=== PATIENT | male | born 1950 | race African-American/Black ===

== ENCOUNTER 2017-08-31 13:44 | Inpatient (IN) | payer OTHER ==
[2017-08-31] MEDS: SOD CHLORIDE 0.9% 500 ML IV (15:05)
[2017-08-31 15:08] LABS: ADD MAN DIFF? NO
[2017-08-31 15:09] LABS: WHITE BLOOD COUNT 4.2 10^3/ul (4.8-10.8)
[2017-08-31 15:09] LABS: BASOPHILS % 0.2 % (0.0-2.0); HEMATOCRIT 37.1 % (42.0-52.0); HEMOGLOBIN 12.1 g/dl (14.0-18.0); LYMPHOCYTES # 1.1 10^3/ul (0.8-2.9); LYMPHOCYTES % 26.6 % (15.0-51.0); MEAN CORPUSCULAR HEMOGLOBIN 36.3 pg (29.0-33.0); MEAN CORPUSCULAR HGB CONC 32.6 g/dl (32.0-37.0); MEAN CORPUSCULAR VOLUME 111.4 fl (82.0-101.0); MEAN PLATELET VOLUME 10.5 fl (7.4-10.4); MONOCYTE # 0.5 10^3/ul (0.3-0.9); MONOCYTES % 12.9 % (0.0-11.0); NEUTROPHIL # 2.5 10^3/ul (1.6-7.5); NEUTROPHILS % 59.1 % (39.0-77.0); PLATELET COUNT 146 10^3/UL (140-415); RED BLOOD COUNT 3.33 10^6/ul (4.70-6.10); RED CELL DISTRIBUTION WIDTH 11.4 % (11.5-14.5)
[2017-08-31 15:26] LABS: ALANINE AMINOTRANSFERASE 27 IU/L (13-69); ALBUMIN 3.5 g/dl (3.3-4.9); ALBUMIN/GLOBULIN RATIO 1.29; ALKALINE PHOSPHATASE 49 IU/L (42-121); ANION GAP 9 (8-16); ASPARTATE AMINO TRANSFERASE 38 IU/L (15-46); BILIRUBIN,INDIRECT 0.2 mg/dl (0-1.1); BILIRUBIN,TOTAL 0.2 mg/dl (0.2-1.3); BLOOD UREA NITROGEN 10 mg/dl (7-20); CALCIUM 8.8 mg/dl (8.4-10.2); CARBON DIOXIDE 32 mmol/L (21-31); CHLORIDE 98 mmol/L (97-110); CREATININE 0.97 mg/dl (0.61-1.24); GLUCOSE 99 mg/dl (70-220); POTASSIUM 4.9 mmol/L (3.5-5.1); SODIUM 134 mmol/L (135-144); TOTAL PROTEIN 6.2 g/dl (6.1-8.1)
[2017-08-31 15:28] LABS: PARTIAL THROMBOPLASTIN TIME 28.7 Sec (25.0-35.0); PROTIME 12.2 Sec (11.9-14.9)
[2017-08-31 15:38] LABS: B-TYPE NATRIURETIC PEPTIDE 1810 PG/ML (0-125); TROPONIN-I 0.011 ng/ml (0.000-0.120)
[2017-08-31] MEDS: IPRATROPIUM (NEB) 0.5 MG/2.5 ML AMP NEB (16:05)
[2017-08-31] MEDS: ALBUTEROL 0.083% (NEB) 2.5 MG/3 ML AMP NEB (16:05)
[2017-08-31] MEDS: FUROSEMIDE 20 MG INJ IV (17:19)
[2017-08-31] MEDS ORDERED: ONDANSETRON 4 MG INJ IV ×2 (17:30→20:00)
[2017-08-31] MEDS ORDERED: ACETAMINOPHEN 325 MG TAB PO ×2 (17:30→20:00)
[2017-08-31] MEDS ORDERED: NITROGLYCERIN (SL) 0.4 MG TAB SL (20:00)
[2017-08-31] MEDS ORDERED: DOCUSATE SODIUM 100 MG CAP PO (20:00)
[2017-08-31] MEDS: ALBUMIN HUMAN 25% 100 ML IV ×2 (20:00→21:00)
[2017-08-31] MEDS ORDERED: NACL 0.9% 3 ML SYG IV (20:00)
[2017-08-31] MEDS: HYDROCODONE/APAP (10/325) TAB PO (20:26)
[2017-09-01] MEDS: predniSONE 20 MG TAB PO ×2 (00:03→08:12)
[2017-09-01] MEDS: ALBUTEROL/IPRATROPIUM (NEB) 3 ML AMP HHN (00:25)
[2017-09-01] MEDS: ALBUTEROL HFA 8 GM INHALER INH ×3 (00:47→18:36)
[2017-09-01 01:33] LABS: ADD UMIC NO; UR ASCORBIC ACID NEGATIVE (NEGATIVE); UR BILIRUBIN (Dip) NEGATIVE (NEGATIVE); UR BLOOD (Dip) NEGATIVE (NEGATIVE); UR CLARITY CLEAR (CLEAR); UR COLOR STRAW (YELLOW); UR GLUCOSE (Dip) NEGATIVE (NEGATIVE); UR KETONES (Dip) NEGATIVE (NEGATIVE); UR LEUKOCYTE ESTERASE (Dip) NEGATIVE Leu/ul (NEGATIVE); UR NITRITE (Dip) NEGATIVE (NEGATIVE); UR SPECIFIC GRAVITY (Dip) 1.004 (1.003-1.030); UR TOTAL PROTEIN (Dip) NEGATIVE (NEGATIVE); UR UROBILINOGEN (Dip) NEGATIVE (NEGATIVE)
[2017-09-01] MEDS: IPRATROPIUM (NEB) 0.5 MG/2.5 ML AMP HHN ×3 (01:59→13:45)
[2017-09-01 02:15] LABS: SODIUM,URINE RANDOM 60 mmol/L (30-90)
[2017-09-01] MEDS: HYDROCODONE/APAP (10/325) TAB PO ×4 (02:19→18:36)
[2017-09-01] MEDS: ZOLPIDEM 5 MG TAB PO (02:46)
[2017-09-01 03:08] LABS: OSMOLALITY,URINE 211 mOsm/kg (250-1200)
[2017-09-01 08:04] LABS: ADD MAN DIFF? NO
[2017-09-01 08:05] LABS: WHITE BLOOD COUNT 4.8 10^3/ul (4.8-10.8)
[2017-09-01 08:05] LABS: ABNORMAL IP MESSAGE 1; HEMATOCRIT 34.7 % (42.0-52.0); HEMOGLOBIN 11.4 g/dl (14.0-18.0); LYMPHOCYTES # 0.4 10^3/ul (0.8-2.9); LYMPHOCYTES % 7.3 % (15.0-51.0); MEAN CORPUSCULAR HEMOGLOBIN 36.7 pg (29.0-33.0); MEAN CORPUSCULAR HGB CONC 32.9 g/dl (32.0-37.0); MEAN CORPUSCULAR VOLUME 111.6 fl (82.0-101.0); MEAN PLATELET VOLUME 10.7 fl (7.4-10.4); MONOCYTE # 0.1 10^3/ul (0.3-0.9); MONOCYTES % 1.5 % (0.0-11.0); NEUTROPHIL # 4.4 10^3/ul (1.6-7.5); PLATELET COUNT 160 10^3/UL (140-415); POSITIVE DIFF @See below; RED BLOOD COUNT 3.11 10^6/ul (4.70-6.10); RED CELL DISTRIBUTION WIDTH 11.2 % (11.5-14.5)
[2017-09-01] MEDS: FLUTICASONE/VILANTEROL 100-25 INH (08:11)
[2017-09-01] MEDS: LISINOPRIL 10 MG TAB PO (08:13)
[2017-09-01 08:21] LABS: HEMOGLOBIN A1C 5.7 % (0-5.9)
[2017-09-01 08:24] LABS: CREATINE KINASE 73 IU/L (23-200)
[2017-09-01 08:26] LABS: ALANINE AMINOTRANSFERASE 26 IU/L (13-69); ALBUMIN 3.3 g/dl (3.3-4.9); ALBUMIN/GLOBULIN RATIO 1.26; ALKALINE PHOSPHATASE 44 IU/L (42-121); ANION GAP 11 (8-16); ASPARTATE AMINO TRANSFERASE 35 IU/L (15-46); BILIRUBIN,INDIRECT 0.2 mg/dl (0-1.1); BILIRUBIN,TOTAL 0.2 mg/dl (0.2-1.3); BLOOD UREA NITROGEN 14 mg/dl (7-20); CALCIUM 8.6 mg/dl (8.4-10.2); CARBON DIOXIDE 27 mmol/L (21-31); CHLORIDE 100 mmol/L (97-110); CREATININE 1.02 mg/dl (0.61-1.24); GLUCOSE 199 mg/dl (70-220); MAGNESIUM 1.7 mg/dl (1.7-2.5); POTASSIUM 4.6 mmol/L (3.5-5.1); SODIUM 133 mmol/L (135-144); TOTAL PROTEIN 5.9 g/dl (6.1-8.1)
[2017-09-01 08:37] LABS: CK INDEX 8.7; CK-MB 6.32 ng/ml (0.0-2.4)
[2017-09-01 08:41] LABS: OSMOLALITY 289 mOsm/kg (280-295)
[2017-09-01 08:56] LABS: THYROID STIMULATING HORMONE 0.498 MIU/L (0.465-4.680)
[2017-09-01] MEDS: ABACAVIR/LAMIVUDINE TAB PO (09:00)
[2017-09-01 09:32] LABS: FOLATE 16.8 ng/ml (2.8-20.0)
[2017-09-01] MEDS: ENOXAPARIN 60 MG/0.6 ML SYG SC ×2 (14:39→22:04)
[2017-09-01] MEDS ORDERED: PHENOL 1.4% SOLN 180 ML BTL MT (17:30)
[2017-09-01] MEDS: CEPASTAT LOZENGE MT (18:28)
[2017-09-01] MEDS: morphine 2 MG INJ IV (22:07)
[2017-09-02] MEDS: HYDROCODONE/APAP (10/325) TAB PO ×4 (02:00→16:12)
[2017-09-02] MEDS: morphine 2 MG INJ IV ×2 (02:02→02:04)
[2017-09-02 07:22] LABS: ADD MAN DIFF? NO; HAAIG REFLEX REFLEX FILED
[2017-09-02 07:23] LABS: BASOPHILS % 0.2 % (0.0-2.0); EOSINOPHILS % 0.2 % (0.0-7.0); HEMATOCRIT 35.1 % (42.0-52.0); HEMOGLOBIN 11.5 g/dl (14.0-18.0); LYMPHOCYTES # 1.1 10^3/ul (0.8-2.9); LYMPHOCYTES % 21.7 % (15.0-51.0); MEAN CORPUSCULAR HEMOGLOBIN 36.7 pg (29.0-33.0); MEAN CORPUSCULAR HGB CONC 32.8 g/dl (32.0-37.0); MEAN CORPUSCULAR VOLUME 112.1 fl (82.0-101.0); MEAN PLATELET VOLUME 10.2 fl (7.4-10.4); MONOCYTE # 0.7 10^3/ul (0.3-0.9); MONOCYTES % 13.4 % (0.0-11.0); NEUTROPHIL # 3.1 10^3/ul (1.6-7.5); NEUTROPHILS % 64.3 % (39.0-77.0); PLATELET COUNT 155 10^3/UL (140-415); RED BLOOD COUNT 3.13 10^6/ul (4.70-6.10); RED CELL DISTRIBUTION WIDTH 11.3 % (11.5-14.5)
[2017-09-02 07:23] LABS: WHITE BLOOD COUNT 4.8 10^3/ul (4.8-10.8)
[2017-09-02 07:42] LABS: INR 0.91; PROTIME 12.3 Sec (11.9-14.9)
[2017-09-02 07:47] LABS: IRON 41 ug/dl (35-150)
[2017-09-02 07:50] LABS: ALANINE AMINOTRANSFERASE 19 IU/L (13-69); ALBUMIN 3.3 g/dl (3.3-4.9); ALBUMIN/GLOBULIN RATIO 1.17; ALKALINE PHOSPHATASE 42 IU/L (42-121); ANION GAP 8 (8-16); ASPARTATE AMINO TRANSFERASE 31 IU/L (15-46); BILIRUBIN,INDIRECT 0.1 mg/dl (0-1.1); BILIRUBIN,TOTAL 0.1 mg/dl (0.2-1.3); BLOOD UREA NITROGEN 15 mg/dl (7-20); CALCIUM 9.1 mg/dl (8.4-10.2); CARBON DIOXIDE 36 mmol/L (21-31); CHLORIDE 100 mmol/L (97-110); GLUCOSE 77 mg/dl (70-220); MAGNESIUM 1.7 mg/dl (1.7-2.5); PHOSPHORUS 3.4 mg/dl (2.5-4.9); POTASSIUM 4.9 mmol/L (3.5-5.1); SODIUM 139 mmol/L (135-144); TOTAL PROTEIN 6.1 g/dl (6.1-8.1)
[2017-09-02 07:57] LABS: % IRON SATURATION 19 % SAT (22-52); TOTAL IRON BINDING CAPACITY 219 ug/dl (241-421)
[2017-09-02] MEDS: FLUTICASONE/VILANTEROL 100-25 INH (08:01)
[2017-09-02] MEDS: DOLUTEGRAVIR SODIUM 50 MG TABLET PO ×2 (08:10→08:20)
[2017-09-02] MEDS: LISINOPRIL 5 MG TAB PO (08:12)
[2017-09-02] MEDS: THIAMINE 100 MG TAB PO (08:12)
[2017-09-02] MEDS: ENOXAPARIN 60 MG/0.6 ML SYG SC (08:13)
[2017-09-02 08:20] LABS: HEPATITIS B SURFACE ANTIGEN NEGATIVE (NEGATIVE)
[2017-09-02] MEDS: ABACAVIR/LAMIVUDINE TAB PO (08:20)
[2017-09-02 08:38] LABS: HEPATITIS B CORE ANTIBODY REACTIVE (NEGATIVE); HEPATITIS C VIRAL ANTIBODY REACTIVE (NEGATIVE)
[2017-09-02 08:54] LABS: FOLATE 13.2 ng/ml (2.8-20.0)
[2017-09-02] MEDS: BISACODYL (EC) 5 MG TAB PO (09:08)
[2017-09-19 14:04] LABS: LYMPHOCYTE - % CD4 (HELPER) 20 % (30-61); LYMPHOCYTE - %CD8 (SUPPRESSOR) 39 % (12-42); LYMPHOCYTE - ABSOLUTE 345 cells/uL (850-3900); LYMPHOCYTE - ABSOLUTE CD4 70 cells/uL (490-1740); LYMPHOCYTE - ABSOLUTE CD8 133 cells/uL (180-1170); LYMPHOCYTE - CD4/CD8 RATIO 0.52 (0.86-5.00)
== END 2017-09-02 16:57 | disposition home or self-care (01) | DRG 896 ==
LOC: E/R 13:44 → MS4 17:13
DX: F10.20 Alcohol dependence, uncomplicated (principal); B20 Human immunodeficiency virus [HIV] disease; I82.531 Chronic embolism and thrombosis of right popliteal vein; I10 Essential (primary) hypertension; Z90.5 Acquired absence of kidney; D64.9 Anemia, unspecified; J44.9 Chronic obstructive pulmonary disease, unspecified; I95.9 Hypotension, unspecified; K75.9 Inflammatory liver disease, unspecified
CPT/HCPCS: 36415; 71045; 80053; 80076; 81003; 82550; 82553; 82607; 82728; 82746; 83036; 83540; 83735; 83880; 83930; 83935; 84100; 84300; 84443; 84484; 85025; 85610; 85730; 86360; 86704; 86709; 86803; 87040; 87340; 87536; 93005; 93306; 93970; 94640; 94664; 99285-25; G0378

== ENCOUNTER 2017-12-12 02:20 | Inpatient (IN) | payer OTHER ==
[2017-12-12] MEDS ORDERED: DEXAMETHASONE 10 MG/ML 1 ML INJ IV (02:24)
[2017-12-12] MEDS: LORAZEPAM 2 MG INJ IV (02:33)
[2017-12-12 02:36] LABS: ADD MAN DIFF? NO
[2017-12-12 02:37] LABS: MODE ROOM AIR; MetHgb Venous 0.8 %; Sample Type Blood venous; Site VENOUS LINE; Venous COHb 2.3 %; Venous Oxygen Sat 24.8 mmHG (55.0-75.0); Venous Total Hemglobin 13.8 g/dl
[2017-12-12] MEDS: DEXAMETHASONE 10 MG/ML 1 ML INJ IV (02:40)
[2017-12-12] MEDS: ALBUTEROL 0.5% (NEB) 2.5 MG/0.5 ML AMP INH (02:46)
[2017-12-12] MEDS: IPRATROPIUM (NEB) 0.5 MG/2.5 ML AMP INH (02:46)
[2017-12-12 02:58] LABS: ANION GAP 10 (5-13); BLOOD UREA NITROGEN 20 mg/dl (7-20); CALCIUM 8.9 mg/dl (8.4-10.2); CARBON DIOXIDE 30 mmol/L (21-31); CHLORIDE 95 mmol/L (97-110); CREATININE 1.54 mg/dl (0.61-1.24); Estimated GFR 55 mL/min (>60); GLUCOSE 105 mg/dl (70-220); POTASSIUM 5.6 mmol/L (3.5-5.1); SODIUM 135 mmol/L (135-144)
[2017-12-12 03:08] LABS: BASOPHILS % 0.5 % (0.0-2.0); EOSINOPHILS # 0.4 10^3/ul (0.0-0.5); EOSINOPHILS % 7.3 % (0.0-7.0); HEMATOCRIT 40.7 % (42.0-52.0); HEMOGLOBIN 13.7 g/dl (14.0-18.0); LYMPHOCYTES # 1.5 10^3/ul (0.8-2.9); LYMPHOCYTES % 24.4 % (15.0-51.0); MEAN CORPUSCULAR HEMOGLOBIN 37.1 pg (29.0-33.0); MEAN CORPUSCULAR HGB CONC 33.7 g/dl (32.0-37.0); MEAN CORPUSCULAR VOLUME 110.3 fl (82.0-101.0); MEAN PLATELET VOLUME 10.8 fl (7.4-10.4); MONOCYTE # 0.9 10^3/ul (0.3-0.9); MONOCYTES % 14.2 % (0.0-11.0); NEUTROPHIL # 3.2 10^3/ul (1.6-7.5); NEUTROPHILS % 53.4 % (39.0-77.0); PLATELET COUNT 126 10^3/UL (140-415); RED BLOOD COUNT 3.69 10^6/ul (4.70-6.10); RED CELL DISTRIBUTION WIDTH 12.2 % (11.5-14.5)
[2017-12-12 03:10] LABS: TROPONIN-I < 0.012 ng/ml (0.000-0.120)
[2017-12-12] MEDS: CEFTRIAXONE 1 GM/50 ML (PMX) 50 ML IVPB (03:20)
[2017-12-12] MEDS: SODIUM CHLORIDE 0.9% 1L BAG IV* (03:22)
[2017-12-12] MEDS: AZITHROMYCIN 500MG/NS (PMX) 250 ML IV (03:22)
[2017-12-12 03:35] LABS: POTASSIUM 5.1 mmol/L (3.5-5.1)
[2017-12-12 03:39] LABS: LACTIC ACID 1.2 mmol/L (0.5-2.0)
[2017-12-12] MEDS ORDERED: ACETAMINOPHEN 325 MG TAB PO ×2 (04:30)
[2017-12-12] MEDS ORDERED: BISACODYL (EC) 5 MG TAB PO (04:30)
[2017-12-12] MEDS ORDERED: ONDANSETRON 4 MG INJ IV ×2 (04:30)
[2017-12-12] MEDS ORDERED: DOCUSATE SODIUM 100 MG CAP PO (04:30)
[2017-12-12] MEDS ORDERED: NACL 0.9% 3 ML SYG IV (04:30)
[2017-12-12] MEDS: ALBUTEROL 0.083% (NEB) 2.5 MG/3 ML AMP INH (04:51)
[2017-12-12] MEDS: ALBUTEROL/IPRATROPIUM (NEB) 3 ML AMP HHN ×3 (04:54→12:37)
[2017-12-12] MEDS ORDERED: HEPARIN 5,000 UNIT/1 ML VIAL SC ×2 (06:00→22:09)
[2017-12-12] MEDS: HEPARIN 5,000 UNIT/0.5 ML VIAL SC ×2 (06:53→14:00)
[2017-12-12] MEDS: SENNA TAB PO (06:55)
[2017-12-12] MEDS: PANTOPRAZOLE (EC) 40 MG TAB PO (06:56)
[2017-12-12] MEDS: TRIMETHOPRIM/SULFAMETHOX (DS) TAB PO ×2 (07:00→11:16)
[2017-12-12] MEDS ORDERED: AZITHROMYCIN 500MG/NS (PMX) 250 ML IVPB (07:00)
[2017-12-12] MEDS ORDERED: CEFTRIAXONE 1 GM/50 ML (PMX) 50 ML IVPB (07:00)
[2017-12-12] MEDS ORDERED: CEPASTAT LOZENGE MT (07:30)
[2017-12-12 07:47] LABS: AMPHETAMINE/METHAMPHETAMINE Negative (NEGATIVE); BARBITURATES Negative (NEGATIVE); BENZODIAZEPINES Negative (NEGATIVE); CANNABINOIDS Negative (NEGATIVE)
[2017-12-12 07:53] LABS: COCAINE Positive (NEGATIVE); OPIATES Positive (NEGATIVE)
[2017-12-12] MEDS ORDERED: FLUTICASONE/VILANTEROL 100-25 INH (09:00)
[2017-12-12] MEDS: ABACAVIR/LAMIVUDINE TAB PO ×2 (09:00→11:19)
[2017-12-12] MEDS ORDERED: AMLODIPINE 5 MG TAB GTB (09:00)
[2017-12-12] MEDS ORDERED: NON-FORMULARY/PATIENT OWN MED (Abacavir/Dolutegravir/Lamivudi (Triumeq Tablet) 1 EACH) PO (09:00)
[2017-12-12] MEDS: DOLUTEGRAVIR SODIUM 50 MG TABLET PO ×2 (09:00→11:19)
[2017-12-12] MEDS: FLUTICASONE/VILANTEROL 100-25 INH (09:00)
[2017-12-12 09:33] LABS: LACTIC ACID 2.9 mmol/L (0.5-2.0)
[2017-12-12 10:00] LABS: ALANINE AMINOTRANSFERASE 45 IU/L (13-69); ALBUMIN 5.2 g/dl (3.3-4.9); ALKALINE PHOSPHATASE 128 IU/L (42-121); ANION GAP 17 (5-13); ASPARTATE AMINO TRANSFERASE 68 IU/L (15-46); BILIRUBIN,INDIRECT 0.3 mg/dl (0-1.1); BILIRUBIN,TOTAL 0.3 mg/dl (0.2-1.3); BLOOD UREA NITROGEN 19 mg/dl (7-20); CALCIUM 9.9 mg/dl (8.4-10.2); CARBON DIOXIDE 25 mmol/L (21-31); CHLORIDE 96 mmol/L (97-110); CREATININE 1.39 mg/dl (0.61-1.24); Estimated GFR > 60 mL/min (>60); GLUCOSE 182 mg/dl (70-220); POTASSIUM 5.6 mmol/L (3.5-5.1); SODIUM 138 mmol/L (135-144); TOTAL PROTEIN 9.2 g/dl (6.1-8.1)
[2017-12-12] MEDS: HYDROCODONE/APAP (10/325) TAB PO ×2 (10:04→16:17)
[2017-12-12 10:26] LABS: THYROID STIMULATING HORMONE 0.851 MIU/L (0.465-4.680)
[2017-12-12] MEDS: MAGNESIUM CITRATE 300 ML BTL PO ×3 (10:31→17:30)
[2017-12-12] MEDS: predniSONE 20 MG TAB PO (11:19)
[2017-12-12] MEDS: HARD FAT/PHENYLEPHRINE SUPP PR ×2 (12:00→21:24)
[2017-12-12] MEDS: BISACODYL (EC) 5 MG TAB PO (12:03)
[2017-12-12] MEDS: ALBUTEROL 0.083% (NEB) 2.5 MG/3 ML AMP HHN ×2 (13:50→20:22)
[2017-12-12] MEDS: METHYLNALTREXONE 12 MG/0.6 ML VIAL SC (15:13)
[2017-12-12] MEDS: MINERAL OIL 133 ML ENEMA PR ×2 (17:30→17:59)
[2017-12-12] MEDS: POLYETHYLENE GLYCOL 3350 119 GM POWDER PO (17:54)
[2017-12-12] MEDS: LORAZEPAM 1 MG TAB PO (18:59)
[2017-12-12] MEDS ORDERED: DIPHENHYDRAMINE 50 MG CAP (21:09)
[2017-12-12] MEDS: DIPHENHYDRAMINE 50 MG CAP PO (21:24)
[2017-12-12] MEDS ORDERED: HEPARIN 5,000 UNIT/0.5 ML VIAL (22:10)
[2017-12-12 22:12] LABS: SITE Right Upper Forearm
[2017-12-12] MEDS: HEPARIN 5,000 UNIT/1 ML VIAL SC (22:25)
[2017-12-12] MEDS ORDERED: PE/SHARK OIL/MO/PETROL 30 GM OINT PR (23:00)
[2017-12-12 23:22] LABS: ADD MAN DIFF? NO
[2017-12-12 23:23] LABS: ABNORMAL IP MESSAGE 1; HEMOGLOBIN 13.2 g/dl (14.0-18.0); LYMPHOCYTES # 0.5 10^3/ul (0.8-2.9); LYMPHOCYTES % 10.3 % (15.0-51.0); MEAN CORPUSCULAR HEMOGLOBIN 36.8 pg (29.0-33.0); MEAN CORPUSCULAR VOLUME 111.4 fl (82.0-101.0); MEAN PLATELET VOLUME 10.6 fl (7.4-10.4); MONOCYTE # 0.4 10^3/ul (0.3-0.9); MONOCYTES % 8.4 % (0.0-11.0); NEUTROPHIL # 3.8 10^3/ul (1.6-7.5); NEUTROPHILS % 80.9 % (39.0-77.0); PLATELET COUNT 138 10^3/UL (140-415); POSITIVE DIFF @See below; RED BLOOD COUNT 3.59 10^6/ul (4.70-6.10); RED CELL DISTRIBUTION WIDTH 12.2 % (11.5-14.5)
[2017-12-12 23:23] LABS: WHITE BLOOD COUNT 4.7 10^3/ul (4.8-10.8)
[2017-12-12 23:42] LABS: ALANINE AMINOTRANSFERASE 36 IU/L (13-69); ALBUMIN 4.2 g/dl (3.3-4.9); ALKALINE PHOSPHATASE 86 IU/L (42-121); ANION GAP 9 (5-13); ASPARTATE AMINO TRANSFERASE 49 IU/L (15-46); BILIRUBIN,INDIRECT 0.1 mg/dl (0-1.1); BILIRUBIN,TOTAL 0.1 mg/dl (0.2-1.3); BLOOD UREA NITROGEN 19 mg/dl (7-20); CALCIUM 8.9 mg/dl (8.4-10.2); CARBON DIOXIDE 31 mmol/L (21-31); CHLORIDE 97 mmol/L (97-110); CREATININE 1.27 mg/dl (0.61-1.24); Estimated GFR > 60 mL/min (>60); GLUCOSE 176 mg/dl (70-220); POTASSIUM 5.9 mmol/L (3.5-5.1); SODIUM 137 mmol/L (135-144)
[2017-12-12 23:46] LABS: LACTIC ACID 2.9 mmol/L (0.5-2.0)
[2017-12-13] MEDS: HYDROCODONE/APAP (10/325) TAB PO ×3 (00:35→12:35)
[2017-12-13] MEDS: MINERAL OIL 133 ML ENEMA PR (00:35)
[2017-12-13] MEDS: ALBUTEROL 0.083% (NEB) 2.5 MG/3 ML AMP HHN ×4 (01:11→11:28)
[2017-12-13] MEDS: AZITHROMYCIN 500MG/NS (PMX) 250 ML IVPB (05:24)
[2017-12-13] MEDS ORDERED: LEVOFLOXACIN 750 MG TABLET PO (06:00)
[2017-12-13] MEDS ORDERED: HEPARIN 5,000 UNIT/0.5 ML VIAL (06:14)
[2017-12-13] MEDS: POLYETHYLENE GLYCOL 3350 119 GM POWDER PO (06:20)
[2017-12-13] MEDS: CEFTRIAXONE 1 GM/50 ML (PMX) 50 ML IVPB (06:20)
[2017-12-13] MEDS: PANTOPRAZOLE (EC) 40 MG TAB PO (06:21)
[2017-12-13] MEDS: HEPARIN 5,000 UNIT/1 ML VIAL SC (06:24)
[2017-12-13] MEDS ORDERED: LORAZEPAM 2 MG INJ (06:49)
[2017-12-13] MEDS ORDERED: LORAZEPAM 0.5 MG TAB PO (07:00)
[2017-12-13] MEDS ORDERED: LORAZEPAM 2 MG INJ IV (07:30)
[2017-12-13 07:53] LABS: ADD MAN DIFF? NO
[2017-12-13 08:00] LABS: BASOPHILS % 0.2 % (0.0-2.0); EOSINOPHILS % 0.2 % (0.0-7.0); HEMATOCRIT 42.1 % (42.0-52.0); HEMOGLOBIN 13.8 g/dl (14.0-18.0); LYMPHOCYTES # 0.8 10^3/ul (0.8-2.9); LYMPHOCYTES % 13.9 % (15.0-51.0); MEAN CORPUSCULAR HEMOGLOBIN 36.7 pg (29.0-33.0); MEAN CORPUSCULAR HGB CONC 32.8 g/dl (32.0-37.0); MEAN PLATELET VOLUME 10.1 fl (7.4-10.4); MONOCYTE # 0.6 10^3/ul (0.3-0.9); NEUTROPHIL # 4.3 10^3/ul (1.6-7.5); NEUTROPHILS % 74.2 % (39.0-77.0); PLATELET COUNT 127 10^3/UL (140-415); POSITIVE DIFF @See below; RED BLOOD COUNT 3.76 10^6/ul (4.70-6.10); RED CELL DISTRIBUTION WIDTH 12.1 % (11.5-14.5)
[2017-12-13 08:00] LABS: WHITE BLOOD COUNT 5.8 10^3/ul (4.8-10.8)
[2017-12-13 08:17] LABS: LACTIC ACID 1.8 mmol/L (0.5-2.0)
[2017-12-13 08:20] LABS: LACTATE DEHYDROGENASE 688 IU/L (313-618)
[2017-12-13 08:20] LABS: ALANINE AMINOTRANSFERASE 36 IU/L (13-69); ALBUMIN 4.2 g/dl (3.3-4.9); ALBUMIN/GLOBULIN RATIO 1.16; ALKALINE PHOSPHATASE 97 IU/L (42-121); ANION GAP 7 (5-13); ASPARTATE AMINO TRANSFERASE 51 IU/L (15-46); BILIRUBIN,INDIRECT 0.2 mg/dl (0-1.1); BILIRUBIN,TOTAL 0.2 mg/dl (0.2-1.3); BLOOD UREA NITROGEN 19 mg/dl (7-20); CARBON DIOXIDE 32 mmol/L (21-31); CHLORIDE 98 mmol/L (97-110); CREATININE 1.15 mg/dl (0.61-1.24); Estimated GFR > 60 mL/min (>60); GLUCOSE 122 mg/dl (70-220); SODIUM 137 mmol/L (135-144); TOTAL PROTEIN 7.8 g/dl (6.1-8.1)
[2017-12-13 08:41] LABS: POTASSIUM 5.7 mmol/L (3.5-5.1)
[2017-12-13 08:49] LABS: HEPATITIS B SURFACE ANTIGEN NEGATIVE (NEGATIVE)
[2017-12-13] MEDS: ABACAVIR/LAMIVUDINE TAB PO (09:00)
[2017-12-13] MEDS: DOLUTEGRAVIR SODIUM 50 MG TABLET PO (09:00)
[2017-12-13 09:06] LABS: HEPATITIS C VIRAL ANTIBODY REACTIVE (NEGATIVE)
[2017-12-13] MEDS: predniSONE 20 MG TAB PO (09:07)
[2017-12-13] MEDS: TRIMETHOPRIM/SULFAMETHOX (DS) TAB GTB (09:07)
[2017-12-13] MEDS: BISACODYL (EC) 5 MG TAB PO (09:07)
[2017-12-13 09:08] LABS: ANISOCYTOSIS 1+ (0-0); BAND NEUTROPHILS % (M) 1 % (0-4); EOSINOPHILS % (M) 1 % (0-7); LYMPHOCYTES #M 0.6 10^3/ul (0.8-2.9); LYMPHOCYTES % (M) 12 % (15-51); MONOCYTE #M 0.8 10^3/ul (0.3-0.9); MONOCYTES % (M) 14 % (0-11); PLATELET ESTIMATE DECREASED; REACTIVE LYMPHOCYTES% (M) 1 % (0-0); SEG NEUT #M 4.1 10^3/ul (1.6-7.5); SEGMENTED NEUTROPHILS (M) % 71 % (39-77); SMUDGE%M 13 % (0-0)
[2017-12-13] MEDS: HARD FAT/PHENYLEPHRINE SUPP PR (09:08)
[2017-12-13] MEDS: FLUTICASONE/VILANTEROL 100-25 INH (09:10)
[2017-12-13] MEDS: LACTULOSE 30ML CUP PO (09:11)
[2017-12-13 09:17] LABS: ERYTHROCYTE SEDIMENTATION RATE 12 mm/Hr (0-20)
[2017-12-13 13:51] LABS: LYMPHOCYTE - % CD4 (HELPER) 28 % (30-61); LYMPHOCYTE - %CD8 (SUPPRESSOR) 30 % (12-42); LYMPHOCYTE - ABSOLUTE 188 cells/uL (850-3900); LYMPHOCYTE - ABSOLUTE CD4 52 cells/uL (490-1740); LYMPHOCYTE - ABSOLUTE CD8 57 cells/uL (180-1170); LYMPHOCYTE - CD4/CD8 RATIO 0.92 (0.86-5.00)
[2017-12-14 12:28] LABS: NIL 0.03 IU/mL; QUANTIFERON(R)-TB GOLD INDETERMINATE (NEGATIVE)
[2017-12-14 22:03] LABS: FORTY EIGHT HOUR READING 0 mm (0-9)
== END 2017-12-13 14:30 | disposition left against medical advice (07) | DRG 190 ==
LOC: E/R 02:20 → TEL 04:02
PROC: 3E0F7GC Introduction of Other Therapeutic Substance into Respiratory Tract, Via Natural or Artificial Opening (ICD-10-PCS; principal; 2017-12-12)
DX: J44.1 Chronic obstructive pulmonary disease with (acute) exacerbation (principal); J18.9 Pneumonia, unspecified organism; N17.9 Acute kidney failure, unspecified; K92.1 Melena; I10 Essential (primary) hypertension; E87.5 Hyperkalemia; F14.90 Cocaine use, unspecified, uncomplicated; B19.20 Unspecified viral hepatitis C without hepatic coma; K64.9 Unspecified hemorrhoids; K59.00 Constipation, unspecified; K62.89 Other specified diseases of anus and rectum; G89.29 Other chronic pain
CPT/HCPCS: 36415; 71045; 74018; 80048; 80053; 80307; 82803; 83036; 83605; 83615; 84132; 84443; 84484; 85025; 85651; 86360; 86480; 86580; 86606; 86635; 86709; 86803; 87040; 87340; 87522; 87536; 90686; 93005; 93970; 94640; 94644; 94664; 96365; 96366; 96375; 99291-25

== ENCOUNTER 2017-12-27 13:12 | Inpatient (IN) | payer OTHER ==
[2017-12-27 13:53] LABS: ADD MAN DIFF? NO
[2017-12-27 13:54] LABS: BASOPHILS % 0.3 % (0.0-2.0); HEMATOCRIT 42.2 % (42.0-52.0); HEMOGLOBIN 14.2 g/dl (14.0-18.0); LYMPHOCYTES # 1.2 10^3/ul (0.8-2.9); LYMPHOCYTES % 10.5 % (15.0-51.0); MEAN CORPUSCULAR HEMOGLOBIN 36.2 pg (29.0-33.0); MEAN CORPUSCULAR HGB CONC 33.6 g/dl (32.0-37.0); MEAN CORPUSCULAR VOLUME 107.7 fl (82.0-101.0); MEAN PLATELET VOLUME 10.6 fl (7.4-10.4); MONOCYTE # 0.8 10^3/ul (0.3-0.9); MONOCYTES % 7.6 % (0.0-11.0); NEUTROPHILS % 81.2 % (39.0-77.0); PLATELET COUNT 150 10^3/UL (140-415); RED BLOOD COUNT 3.92 10^6/ul (4.70-6.10); RED CELL DISTRIBUTION WIDTH 11.9 % (11.5-14.5)
[2017-12-27 14:13] LABS: INR 0.96; PROTIME 12.9 Sec (11.9-14.9)
[2017-12-27 14:14] LABS: PARTIAL THROMBOPLASTIN TIME 29.3 Sec (23.0-35.0)
[2017-12-27] MEDS: SODIUM CHLORIDE 0.9% 1L BAG IV* (14:20)
[2017-12-27 14:21] LABS: ANION GAP 13 (5-13); BLOOD UREA NITROGEN 21 mg/dl (7-20); CALCIUM 9.2 mg/dl (8.4-10.2); CARBON DIOXIDE 28 mmol/L (21-31); CHLORIDE 87 mmol/L (97-110); CREATININE 1.19 mg/dl (0.61-1.24); Estimated GFR > 60 mL/min (>60); GLUCOSE 94 mg/dl (70-220); SODIUM 128 mmol/L (135-144)
[2017-12-27 14:32] LABS: POTASSIUM 6.1 mmol/L (3.5-5.1); TROPONIN-I < 0.012 ng/ml (0.000-0.120)
[2017-12-27] MEDS: NA POLYST SULFON 15 GM/60 ML BTL PO (14:35)
[2017-12-27] MEDS ORDERED: ONDANSETRON 4 MG INJ IV (15:00)
[2017-12-27] MEDS ORDERED: ACETAMINOPHEN 325 MG TAB PO ×2 (15:00→16:00)
[2017-12-27] MEDS: METHYLPREDNISOLONE 125 MG INJ IV ×2 (15:09→20:48)
[2017-12-27] MEDS: FUROSEMIDE 40 MG INJ IV (15:09)
[2017-12-27] MEDS: NA BICARBONATE 8.4% 50 ML SYG IV (15:10)
[2017-12-27] MEDS: DEXTROSE 50% 50 ML SYRINGE IV (15:10)
[2017-12-27] MEDS: INSULIN REGULAR, HUMAN 100 UNIT/1 ML 3ML VIAL IVP (15:11)
[2017-12-27] MEDS: CA CHLORIDE 10% 10 ML SYRINGE IV (15:15)
[2017-12-27] MEDS: LEVOFLOXACIN 750MG/D5W (PMX) 150 ML IVPB (15:42)
[2017-12-27] MEDS: IPRATROPIUM (NEB) 0.5 MG/2.5 ML AMP INH (15:43)
[2017-12-27] MEDS: ALBUTEROL 0.5% (NEB) 2.5 MG/0.5 ML AMP INH (15:44)
[2017-12-27] MEDS ORDERED: NITROGLYCERIN (SL) 0.4 MG TAB SL (16:00)
[2017-12-27] MEDS ORDERED: NA PHOSPHATE/BIPHOS 133 ML ENEMA PR (16:00)
[2017-12-27] MEDS ORDERED: NACL 0.9% 3 ML SYG IV (16:00)
[2017-12-27] MEDS ORDERED: DOCUSATE SODIUM 100 MG CAP PO (16:00)
[2017-12-27] MEDS ORDERED: hydrALAzine 20 MG INJ IV (16:00)
[2017-12-27 16:41] LABS: FREE T4 (FREE THYROXINE) 1.44 ng/dl (0.78-2.44)
[2017-12-27] MEDS: ALBUTEROL/IPRATROPIUM (NEB) 3 ML AMP HHN ×2 (17:00→20:29)
[2017-12-27] MEDS: SOD CHLORIDE 0.9% 1,000 ML IV (17:13)
[2017-12-27] MEDS ORDERED: PIPER-TAZO 3.375 GM IV (PMX) 100 ML IVPB (18:00)
[2017-12-27] MEDS: morphine 2 MG INJ IV (18:48)
[2017-12-27] MEDS: ERTAPENEM SODIUM 1 GM in SOD CHLORIDE 0.9% 100 ML IVPB (18:48)
[2017-12-27] MEDS: TRIMETHOPRIM/SULFAMETHOXAZOLE 15 ML in DEXTROSE 5% 500 ML IVPB (20:47)
[2017-12-27] MEDS: [UNRECOGNIZED DRUG - REMARK] XX (21:00)
[2017-12-27] MEDS ORDERED: TRIMETHOPRIM/SULFAMETHOX (DS) TAB PO (21:00)
[2017-12-28] MEDS: morphine 2 MG INJ IV ×7 (00:02→23:57)
[2017-12-28] MEDS: TRIMETHOPRIM/SULFAMETHOXAZOLE 15 ML in DEXTROSE 5% 500 ML IVPB ×4 (00:02→21:30)
[2017-12-28] MEDS: ALBUTEROL/IPRATROPIUM (NEB) 3 ML AMP HHN ×6 (00:20→20:39)
[2017-12-28] MEDS: [UNRECOGNIZED DRUG - REMARK] XX (01:00)
[2017-12-28 05:37] LABS: ADD MAN DIFF? NO
[2017-12-28 05:46] LABS: ABNORMAL IP MESSAGE 1; BASOPHILS % 0.2 % (0.0-2.0); HEMATOCRIT 33.7 % (42.0-52.0); HEMOGLOBIN 11.5 g/dl (14.0-18.0); LYMPHOCYTES # 0.1 10^3/ul (0.8-2.9); LYMPHOCYTES % 2.5 % (15.0-51.0); MEAN CORPUSCULAR HEMOGLOBIN 36.6 pg (29.0-33.0); MEAN CORPUSCULAR HGB CONC 34.1 g/dl (32.0-37.0); MEAN CORPUSCULAR VOLUME 107.3 fl (82.0-101.0); MEAN PLATELET VOLUME 10.9 fl (7.4-10.4); MONOCYTE # 0.1 10^3/ul (0.3-0.9); MONOCYTES % 1.4 % (0.0-11.0); NEUTROPHIL # 5.4 10^3/ul (1.6-7.5); NEUTROPHILS % 95.5 % (39.0-77.0); PLATELET COUNT 127 10^3/UL (140-415); POSITIVE DIFF @See below; RED BLOOD COUNT 3.14 10^6/ul (4.70-6.10); RED CELL DISTRIBUTION WIDTH 11.9 % (11.5-14.5)
[2017-12-28 05:46] LABS: WHITE BLOOD COUNT 5.7 10^3/ul (4.8-10.8)
[2017-12-28] MEDS: METHYLPREDNISOLONE 125 MG INJ IV ×3 (05:46→22:39)
[2017-12-28 06:01] LABS: INR 1.06; PROTIME 13.9 Sec (11.9-14.9); PT RATIO 1.1
[2017-12-28 06:01] LABS: HEMOGLOBIN A1C 5.3 % (0-5.9)
[2017-12-28 06:05] LABS: ANION GAP 9 (5-13); BLOOD UREA NITROGEN 22 mg/dl (7-20); CALCIUM 8.5 mg/dl (8.4-10.2); CARBON DIOXIDE 31 mmol/L (21-31); CHLORIDE 87 mmol/L (97-110); CREATININE 1.11 mg/dl (0.61-1.24); Estimated GFR > 60 mL/min (>60); GLUCOSE 221 mg/dl (70-220); SODIUM 127 mmol/L (135-144)
[2017-12-28 06:10] LABS: ETHANOL < 10.0 mg/dl; LACTIC ACID 2.6 mmol/L (0.5-2.0)
[2017-12-28 06:11] LABS: PHOSPHORUS 3.6 mg/dl (2.5-4.9)
[2017-12-28 06:11] LABS: MAGNESIUM 1.5 mg/dl (1.7-2.5)
[2017-12-28 06:13] LABS: CHOLESTEROL 149 mg/dl (100-200)
[2017-12-28 06:13] LABS: CHOL/HDL RATIO 1.5 RATIO; HDL CHOLESTEROL 99 mg/dl (30-78); LDL CHOLESTEROL,CALCULATED 44 mg/dl; TRIGLYCERIDES 30 mg/dl (0-149)
[2017-12-28] MEDS: SOD CHLORIDE 0.9% 1,000 ML IV ×3 (07:00→13:33)
[2017-12-28] MEDS: LISINOPRIL 10 MG TAB PO (08:20)
[2017-12-28] MEDS ORDERED: NON-FORMULARY/PATIENT OWN MED (Abacavir/Dolutegravir/Lamivudi (Triumeq Tablet) 1 EACH) PO (09:00)
[2017-12-28 09:12] LABS: THYROID STIMULATING HORMONE 0.363 MIU/L (0.465-4.680)
[2017-12-28] MEDS ORDERED: MAGNESIUM HYDROXIDE 30ML CUP PO (09:30)
[2017-12-28] MEDS ORDERED: FAMOTIDINE 20 MG TAB (10:01)
[2017-12-28] MEDS: CEPASTAT LOZENGE MT (10:58)
[2017-12-28] MEDS: FAMOTIDINE 20 MG INJ IV (11:09)
[2017-12-28] MEDS: INFLUENZA VIRUS VACCINE 0.5 ML (DISPENSING) IM* (11:11)
[2017-12-28 11:21] LABS: AADO2 Arterial 361.8 mmHg (7.0-24.0); Allen Test ACCEPTAB; Arterial Base Excess 0.4 mmol/L (-3.0-3); Arterial Blood Gas Oxygen Sat 98.6 mmHG (95.0-98.0); Arterial COHb 0 % (0.0-3.0); Arterial Fraction of Oxyhgb 98.2 % (93.0-99.0); Arterial HCO3 27.4 mmol/L (22.0-26.0); Arterial MetHb 0.4 % (0.0-1.5); Arterial Total Hemglobin 11.9 g/dl (12.0-18.0); MODE MASK - NRB; Site Right Brachial
[2017-12-28] MEDS: MAGNESIUM SULFATE 2 GM/50 ML 50 ML IVPB (13:32)
[2017-12-28] MEDS: NYSTATIN SUSP 5 ML CUP PO ×3 (13:33→21:45)
[2017-12-28 15:43] LABS: LACTATE DEHYDROGENASE 577 IU/L (313-618)
[2017-12-28] MEDS: FLUCONAZOLE 100 MG TAB PO (16:11)
[2017-12-28] MEDS: LEVOFLOXACIN 500MG/D5W (PMX) 100 ML IVPB (16:11)
[2017-12-28] MEDS: ZOLPIDEM 5 MG TAB PO (21:45)
[2017-12-29] MEDS: ALBUTEROL/IPRATROPIUM (NEB) 3 ML AMP HHN ×6 (00:54→21:00)
[2017-12-29 01:42] LABS: LACTIC ACID 4.3 mmol/L (0.5-2.0)
[2017-12-29] MEDS: TRIMETHOPRIM/SULFAMETHOXAZOLE 15 ML in DEXTROSE 5% 500 ML IVPB ×4 (02:42→18:15)
[2017-12-29] MEDS: SOD CHLORIDE 0.9% 1,000 ML IV ×3 (02:43→18:15)
[2017-12-29] MEDS: morphine 2 MG INJ IV ×4 (04:25→17:32)
[2017-12-29] MEDS: METHYLPREDNISOLONE 125 MG INJ IV (06:08)
[2017-12-29 08:24] LABS: ADD MAN DIFF? NO
[2017-12-29 08:28] LABS: ABNORMAL IP MESSAGE 1; HEMATOCRIT 37.5 % (42.0-52.0); HEMOGLOBIN 12.9 g/dl (14.0-18.0); LYMPHOCYTES # 0.2 10^3/ul (0.8-2.9); LYMPHOCYTES % 2.7 % (15.0-51.0); MEAN CORPUSCULAR HGB CONC 34.4 g/dl (32.0-37.0); MEAN CORPUSCULAR VOLUME 107.4 fl (82.0-101.0); MEAN PLATELET VOLUME 10.7 fl (7.4-10.4); MONOCYTE # 0.2 10^3/ul (0.3-0.9); NEUTROPHILS % 93.8 % (39.0-77.0); PLATELET COUNT 142 10^3/UL (140-415); POSITIVE DIFF @See below; RED BLOOD COUNT 3.49 10^6/ul (4.70-6.10); RED CELL DISTRIBUTION WIDTH 11.9 % (11.5-14.5)
[2017-12-29 08:28] LABS: WHITE BLOOD COUNT 6.3 10^3/ul (4.8-10.8)
[2017-12-29 08:49] LABS: MAGNESIUM 1.9 mg/dl (1.7-2.5)
[2017-12-29 08:51] LABS: LACTIC ACID 3.9 mmol/L (0.5-2.0)
[2017-12-29 08:51] LABS: ANION GAP 11 (5-13); BLOOD UREA NITROGEN 15 mg/dl (7-20); CALCIUM 8.9 mg/dl (8.4-10.2); CARBON DIOXIDE 29 mmol/L (21-31); CHLORIDE 86 mmol/L (97-110); CREATININE 0.77 mg/dl (0.61-1.24); Estimated GFR > 60 mL/min (>60); GLUCOSE 178 mg/dl (70-220); POTASSIUM 5.4 mmol/L (3.5-5.1); SODIUM 126 mmol/L (135-144)
[2017-12-29] MEDS: DOLUTEGRAVIR SODIUM 50 MG TABLET PO (09:00)
[2017-12-29] MEDS: NYSTATIN SUSP 5 ML CUP PO ×4 (09:00→21:00)
[2017-12-29] MEDS: ABACAVIR/LAMIVUDINE TAB PO (09:00)
[2017-12-29] MEDS: FLUCONAZOLE 100 MG TAB PO (09:09)
[2017-12-29] MEDS: FAMOTIDINE 20 MG INJ IV (09:10)
[2017-12-29] MEDS: LISINOPRIL 10 MG TAB PO (09:10)
[2017-12-29] MEDS: NA POLYST SULFON 15 GM/60 ML BTL PO (11:11)
[2017-12-29 13:46] LABS: LACTIC ACID 4.3 mmol/L (0.5-2.0)
[2017-12-29] MEDS: METHYLPREDNISOLONE 40 MG INJ IV ×2 (13:50→21:00)
[2017-12-29] MEDS: LEVOFLOXACIN 500MG/D5W (PMX) 100 ML IVPB (14:22)
[2017-12-30] MEDS: morphine 2 MG INJ IV ×3 (00:18→23:20)
[2017-12-30] MEDS: TRIMETHOPRIM/SULFAMETHOXAZOLE 15 ML in DEXTROSE 5% 500 ML IVPB ×4 (00:21→16:21)
[2017-12-30] MEDS: ALBUTEROL/IPRATROPIUM (NEB) 3 ML AMP HHN ×6 (01:00→21:00)
[2017-12-30] MEDS: SOD CHLORIDE 0.9% 1,000 ML IV (03:53)
[2017-12-30] MEDS: METHYLPREDNISOLONE 40 MG INJ IV ×3 (06:55→21:49)
[2017-12-30 06:59] LABS: ADD MAN DIFF? NO
[2017-12-30 07:04] LABS: WHITE BLOOD COUNT 5.7 10^3/ul (4.8-10.8)
[2017-12-30 07:04] LABS: ABNORMAL IP MESSAGE 1; BASOPHILS % 0.2 % (0.0-2.0); HEMATOCRIT 37.2 % (42.0-52.0); HEMOGLOBIN 12.7 g/dl (14.0-18.0); LYMPHOCYTES # 0.2 10^3/ul (0.8-2.9); MEAN CORPUSCULAR HEMOGLOBIN 36.6 pg (29.0-33.0); MEAN CORPUSCULAR HGB CONC 34.1 g/dl (32.0-37.0); MEAN CORPUSCULAR VOLUME 107.2 fl (82.0-101.0); MEAN PLATELET VOLUME 10.5 fl (7.4-10.4); MONOCYTE # 0.3 10^3/ul (0.3-0.9); MONOCYTES % 4.4 % (0.0-11.0); NEUTROPHIL # 5.2 10^3/ul (1.6-7.5); NEUTROPHILS % 91.3 % (39.0-77.0); NUCLEATED RED BLOOD CELLS% 0.4 /100WBC (0.0-0.0); PLATELET COUNT 107 10^3/UL (140-415); POSITIVE DIFF @See below; RED BLOOD COUNT 3.47 10^6/ul (4.70-6.10); RED CELL DISTRIBUTION WIDTH 11.6 % (11.5-14.5)
[2017-12-30 07:24] LABS: ANION GAP 11 (5-13); BLOOD UREA NITROGEN 24 mg/dl (7-20); CALCIUM 8.7 mg/dl (8.4-10.2); CARBON DIOXIDE 25 mmol/L (21-31); CHLORIDE 86 mmol/L (97-110); CREATININE 1.12 mg/dl (0.61-1.24); Estimated GFR > 60 mL/min (>60); GLUCOSE 86 mg/dl (70-220); POTASSIUM 5.7 mmol/L (3.5-5.1); SODIUM 122 mmol/L (135-144)
[2017-12-30] MEDS: NYSTATIN SUSP 5 ML CUP PO ×5 (09:00→22:07)
[2017-12-30] MEDS: ABACAVIR/LAMIVUDINE TAB PO (09:00)
[2017-12-30] MEDS: FLUCONAZOLE 100 MG TAB PO (09:53)
[2017-12-30] MEDS: FAMOTIDINE 20 MG INJ IV (09:54)
[2017-12-30] MEDS: DOLUTEGRAVIR SODIUM 50 MG TABLET PO (09:54)
[2017-12-30] MEDS: LISINOPRIL 10 MG TAB PO (09:54)
[2017-12-30] MEDS ORDERED: NA BICARBONATE 4.2% INFANT SYG IV* (10:30)
[2017-12-30] MEDS: NA POLYST SULFON 15 GM/60 ML BTL PO (10:30)
[2017-12-30 11:56] LABS: LACTIC ACID 2.9 mmol/L (0.5-2.0)
[2017-12-30] MEDS: CALCIUM GLUCONATE 10% 1 GM in DEXTROSE 5% 100 ML IVPB (13:56)
[2017-12-30] MEDS: MEGESTROL (40 MG/ML) 10ML CUP PO (14:00)
[2017-12-30] MEDS: FUROSEMIDE 20 MG INJ IV (14:01)
[2017-12-30 14:47] LABS: ANION GAP 12 (5-13); BLOOD UREA NITROGEN 25 mg/dl (7-20); CALCIUM 8.7 mg/dl (8.4-10.2); CARBON DIOXIDE 27 mmol/L (21-31); CHLORIDE 83 mmol/L (97-110); Estimated GFR > 60 mL/min (>60); GLUCOSE 84 mg/dl (70-220); POTASSIUM 5.9 mmol/L (3.5-5.1); SODIUM 122 mmol/L (135-144)
[2017-12-30 14:55] LABS: LACTIC ACID 3.6 mmol/L (0.5-2.0)
[2017-12-30 14:58] LABS: URIC ACID 4.1 mg/dl (3.1-7.9)
[2017-12-30] MEDS: NA BICARBONATE 8.4% 50 ML SYG IV (14:59)
[2017-12-30 15:07] LABS: B-TYPE NATRIURETIC PEPTIDE 3440 PG/ML (0-125)
[2017-12-30] MEDS: LEVOFLOXACIN 500MG/D5W (PMX) 100 ML IVPB (15:13)
[2017-12-30] MEDS: CLINDAMYCIN 300 MG CAP PO (18:00)
[2017-12-30 19:07] LABS: LACTIC ACID 5.6 mmol/L (0.5-2.0)
[2017-12-30 19:20] LABS: OSMOLALITY 264 mOsm/kg (280-295)
[2017-12-30 23:23] LABS: ADD UMIC YES; UR ASCORBIC ACID NEGATIVE (NEGATIVE); UR BILIRUBIN (Dip) NEGATIVE (NEGATIVE); UR BLOOD (Dip) NEGATIVE (NEGATIVE); UR CLARITY TURBID (CLEAR); UR COLOR YELLOW (YELLOW); UR GLUCOSE (Dip) NEGATIVE (NEGATIVE); UR KETONES (Dip) NEGATIVE (NEGATIVE); UR LEUKOCYTE ESTERASE (Dip) 1+ Leu/ul (NEGATIVE); UR MUCUS FEW /HPF (NONE SEEN); UR NITRITE (Dip) NEGATIVE (NEGATIVE); UR RBC 2 /HPF (0-5); UR SPECIFIC GRAVITY (Dip) 1.018 (1.003-1.030); UR TOTAL PROTEIN (Dip) NEGATIVE (NEGATIVE); UR URIC ACID CRYSTAL MANY /HPF (NONE SEEN); UR UROBILINOGEN (Dip) NEGATIVE (NEGATIVE); UR WBC 0 /HPF (0-5)
[2017-12-30 23:32] LABS: CREATININE,URINE RANDOM 75.81 mg/dl (20-370)
[2017-12-30 23:32] LABS: OSMOLALITY,URINE 449 mOsm/kg (250-1200); SODIUM,URINE RANDOM 36 mmol/L (30-90)
[2017-12-31] MEDS: ALBUTEROL/IPRATROPIUM (NEB) 3 ML AMP HHN ×6 (01:00→21:40)
[2017-12-31] MEDS: CLINDAMYCIN 300 MG CAP PO ×4 (01:30→17:27)
[2017-12-31 03:24] LABS: LACTIC ACID 3.4 mmol/L (0.5-2.0)
[2017-12-31 05:25] LABS: ADD MAN DIFF? NO
[2017-12-31] MEDS: METHYLPREDNISOLONE 40 MG INJ IV ×3 (05:31→21:57)
[2017-12-31 05:41] LABS: ABNORMAL IP MESSAGE 1; BASOPHILS % 0.2 % (0.0-2.0); HEMATOCRIT 37.2 % (42.0-52.0); HEMOGLOBIN 12.7 g/dl (14.0-18.0); LYMPHOCYTES # 0.2 10^3/ul (0.8-2.9); MEAN CORPUSCULAR HEMOGLOBIN 35.7 pg (29.0-33.0); MEAN CORPUSCULAR HGB CONC 34.1 g/dl (32.0-37.0); MEAN CORPUSCULAR VOLUME 104.5 fl (82.0-101.0); MEAN PLATELET VOLUME 11.4 fl (7.4-10.4); MONOCYTE # 0.3 10^3/ul (0.3-0.9); MONOCYTES % 4.7 % (0.0-11.0); NUCLEATED RED BLOOD CELLS% 0.3 /100WBC (0.0-0.0); PLATELET COUNT 78 10^3/UL (140-415); POSITIVE DIFF @See below; RED BLOOD COUNT 3.56 10^6/ul (4.70-6.10); RED CELL DISTRIBUTION WIDTH 11.3 % (11.5-14.5)
[2017-12-31 05:41] LABS: WHITE BLOOD COUNT 5.7 10^3/ul (4.8-10.8)
[2017-12-31 06:07] LABS: ANION GAP 12 (5-13); BLOOD UREA NITROGEN 32 mg/dl (7-20); CALCIUM 8.8 mg/dl (8.4-10.2); CARBON DIOXIDE 31 mmol/L (21-31); CHLORIDE 83 mmol/L (97-110); CREATININE 1.37 mg/dl (0.61-1.24); Estimated GFR > 60 mL/min (>60); GLUCOSE 99 mg/dl (70-220); POTASSIUM 5.7 mmol/L (3.5-5.1); SODIUM 126 mmol/L (135-144)
[2017-12-31] MEDS: morphine 2 MG INJ IV ×2 (07:39→15:56)
[2017-12-31] MEDS: FAMOTIDINE 20 MG INJ IV (08:49)
[2017-12-31] MEDS: ONDANSETRON 4 MG INJ IV (08:49)
[2017-12-31] MEDS: FLUCONAZOLE 100 MG TAB PO (08:53)
[2017-12-31] MEDS: ABACAVIR/LAMIVUDINE TAB PO ×2 (08:53→09:00)
[2017-12-31] MEDS: PRIMAQUINE 15 MG TAB PO ×2 (08:53→09:00)
[2017-12-31] MEDS: DOLUTEGRAVIR SODIUM 50 MG TABLET PO ×2 (08:53→09:00)
[2017-12-31] MEDS: NYSTATIN SUSP 5 ML CUP PO ×4 (08:53→21:00)
[2017-12-31] MEDS: MAGNESIUM HYDROXIDE 30ML CUP PO (08:53)
[2017-12-31] MEDS: CEPASTAT LOZENGE MT (08:53)
[2017-12-31 09:10] LABS: AADO2 Arterial 161.2 mmHg (7.0-24.0); Arterial Base Excess 1.4 mmol/L (-3.0-3); Arterial Blood Gas Oxygen Sat 81.3 mmHG (95.0-98.0); Arterial COHb 0.6 % (0.0-3.0); Arterial Fraction of Oxyhgb 80.8 % (93.0-99.0); Arterial HCO3 28.7 mmol/L (22.0-26.0); Arterial MetHb 0 % (0.0-1.5); Arterial Total Hemglobin 9.9 g/dl (12.0-18.0); Arterial pCO2 60.1 mmhg (35-45); MODE NASAL CANNULA; Site Right Brachial
[2017-12-31] MEDS: NA POLYST SULFON 15 GM/60 ML BTL PO (09:51)
[2017-12-31] MEDS: ALBUMIN HUMAN 25% 100 ML IV ×2 (10:06→17:34)
[2017-12-31] MEDS: INSULIN REGULAR, HUMAN 100 UNIT/1 ML 3ML VIAL IVP (11:13)
[2017-12-31] MEDS ORDERED: DEXTROSE 50% 50 ML SYRINGE IV (11:30)
[2017-12-31] MEDS: NA BICARBONATE 8.4% 50 ML SYG IV (15:58)
[2017-12-31] MEDS: CALCIUM GLUCONATE 10% 1 GM in DEXTROSE 5% 100 ML IVPB (15:58)
[2017-12-31] MEDS: DEXTROSE 50% 50 ML SYRINGE IV (16:10)
[2017-12-31] MEDS: LEVOFLOXACIN 500MG/D5W (PMX) 100 ML IVPB (16:14)
[2017-12-31] MEDS ORDERED: GLUCAGON 1 MG INJ IM (17:30)
[2017-12-31] MEDS ORDERED: GLUCOSE GEL 15 GRAM TUBE PO ×2 (17:30)
[2017-12-31] MEDS: ACCU-CHEK XX ×2 (18:24→23:59)
[2018-01-01] MEDS: ALBUMIN HUMAN 25% 100 ML IV (00:29)
[2018-01-01] MEDS: ALBUTEROL/IPRATROPIUM (NEB) 3 ML AMP HHN ×6 (01:00→21:00)
[2018-01-01] MEDS: ACCU-CHEK XX ×4 (02:00→17:44)
[2018-01-01] MEDS: morphine 2 MG INJ IV ×3 (04:52→14:41)
[2018-01-01] MEDS: CLINDAMYCIN 300 MG CAP PO ×4 (05:25→17:44)
[2018-01-01] MEDS: METHYLPREDNISOLONE 40 MG INJ IV ×3 (05:25→21:11)
[2018-01-01] MEDS: ABACAVIR/LAMIVUDINE TAB PO (08:53)
[2018-01-01] MEDS: FLUCONAZOLE 100 MG TAB PO (08:53)
[2018-01-01] MEDS: PRIMAQUINE 15 MG TAB PO (08:53)
[2018-01-01] MEDS: NYSTATIN SUSP 5 ML CUP PO ×4 (08:53→21:00)
[2018-01-01] MEDS: FAMOTIDINE 20 MG INJ IV (08:53)
[2018-01-01] MEDS: DOLUTEGRAVIR SODIUM 50 MG TABLET PO (08:53)
[2018-01-01] MEDS: GUAIFENESIN 20 MG/ML 5ML CUP PO (09:43)
[2018-01-01 11:36] LABS: WHITE BLOOD COUNT 9.5 10^3/ul (4.8-10.8)
[2018-01-01 11:36] LABS: ABNORMAL IP MESSAGE 1; ADD MAN DIFF? NO; BASOPHILS % 0.2 % (0.0-2.0); HEMATOCRIT 36.4 % (42.0-52.0); HEMOGLOBIN 12.4 g/dl (14.0-18.0); LYMPHOCYTES # 0.1 10^3/ul (0.8-2.9); LYMPHOCYTES % 1.5 % (15.0-51.0); MEAN CORPUSCULAR HEMOGLOBIN 35.8 pg (29.0-33.0); MEAN CORPUSCULAR HGB CONC 34.1 g/dl (32.0-37.0); MEAN CORPUSCULAR VOLUME 105.2 fl (82.0-101.0); MEAN PLATELET VOLUME 11.7 fl (7.4-10.4); MONOCYTE # 0.2 10^3/ul (0.3-0.9); MONOCYTES % 2.2 % (0.0-11.0); NEUTROPHILS % 94.8 % (39.0-77.0); NUCLEATED RED BLOOD CELLS% 0.3 /100WBC (0.0-0.0); POSITIVE DIFF @See below; RED BLOOD COUNT 3.46 10^6/ul (4.70-6.10); RED CELL DISTRIBUTION WIDTH 11.9 % (11.5-14.5)
[2018-01-01 11:44] LABS: PLATELET COUNT 65 10^3/UL (140-415)
[2018-01-01 11:55] LABS: PHOSPHORUS 4.3 mg/dl (2.5-4.9)
[2018-01-01 11:55] LABS: MAGNESIUM 1.9 mg/dl (1.7-2.5)
[2018-01-01 11:56] LABS: ANION GAP 13 (5-13); BLOOD UREA NITROGEN 47 mg/dl (7-20); CARBON DIOXIDE 31 mmol/L (21-31); CHLORIDE 81 mmol/L (97-110); CREATININE 1.52 mg/dl (0.61-1.24); Estimated GFR 56 mL/min (>60); GLUCOSE 98 mg/dl (70-220); POTASSIUM 5.4 mmol/L (3.5-5.1); SODIUM 125 mmol/L (135-144)
[2018-01-01 12:00] LABS: LACTIC ACID 2.3 mmol/L (0.5-2.0)
[2018-01-01] MEDS: HYDROCODONE/APAP (5/325) TAB PO ×2 (12:20→17:49)
[2018-01-01] MEDS: DEXTROSE 50% 50 ML SYRINGE IV ×4 (12:20→20:00)
[2018-01-01 13:37] LABS: LYMPHOCYTE - % CD4 (HELPER) 43 % (30-61); LYMPHOCYTE - %CD8 (SUPPRESSOR) 34 % (12-42); LYMPHOCYTE - ABSOLUTE 135 cells/uL (850-3900); LYMPHOCYTE - ABSOLUTE CD4 58 cells/uL (490-1740); LYMPHOCYTE - ABSOLUTE CD8 46 cells/uL (180-1170); LYMPHOCYTE - CD4/CD8 RATIO 1.26 (0.86-5.00)
[2018-01-01] MEDS: LEVOFLOXACIN 500MG/D5W (PMX) 100 ML IVPB (14:40)
[2018-01-01] MEDS: DEXTROSE 5%-0.9% NACL 1,000 ML IV ×2 (18:15→22:03)
[2018-01-01] MEDS: SODIUM CHLORIDE 1 GM TAB PO (21:00)
[2018-01-01] MEDS: SOD CHLORIDE 0.9% 500 ML IV (23:30)
[2018-01-02] MEDS: ALBUTEROL/IPRATROPIUM (NEB) 3 ML AMP HHN ×6 (00:16→19:56)
[2018-01-02] MEDS: ACCU-CHEK XX ×5 (00:45→18:20)
[2018-01-02] MEDS: CLINDAMYCIN 300 MG CAP PO ×2 (01:18→05:44)
[2018-01-02] MEDS: HYDROCODONE/APAP (5/325) TAB PO (03:49)
[2018-01-02] MEDS: GUAIFENESIN 20 MG/ML 5ML CUP PO (05:43)
[2018-01-02] MEDS: METHYLPREDNISOLONE 40 MG INJ IV ×3 (05:44→21:19)
[2018-01-02 06:13] LABS: ADD MAN DIFF? NO
[2018-01-02 06:21] LABS: WHITE BLOOD COUNT 9.1 10^3/ul (4.8-10.8)
[2018-01-02 06:21] LABS: ABNORMAL IP MESSAGE 1; BASOPHILS % 0.1 % (0.0-2.0); HEMATOCRIT 32.4 % (42.0-52.0); HEMOGLOBIN 11.4 g/dl (14.0-18.0); LYMPHOCYTES # 0.1 10^3/ul (0.8-2.9); LYMPHOCYTES % 1.3 % (15.0-51.0); MEAN CORPUSCULAR HEMOGLOBIN 36.2 pg (29.0-33.0); MEAN CORPUSCULAR HGB CONC 35.2 g/dl (32.0-37.0); MEAN CORPUSCULAR VOLUME 102.9 fl (82.0-101.0); MEAN PLATELET VOLUME 10.9 fl (7.4-10.4); MONOCYTE # 0.2 10^3/ul (0.3-0.9); MONOCYTES % 1.8 % (0.0-11.0); NEUTROPHIL # 8.7 10^3/ul (1.6-7.5); NUCLEATED RED BLOOD CELLS% 0.2 /100WBC (0.0-0.0); PLATELET COUNT 45 10^3/UL (140-415); POSITIVE DIFF @See below; RED BLOOD COUNT 3.15 10^6/ul (4.70-6.10); RED CELL DISTRIBUTION WIDTH 11.9 % (11.5-14.5)
[2018-01-02] MEDS ORDERED: ETOMIDATE 20 MG INJ (07:00)
[2018-01-02] MEDS ORDERED: SUCCINYLCHOLINE CHLORIDE 100 MG/5 ML SYG IV (07:00)
[2018-01-02] MEDS ORDERED: ROCURONIUM 50 MG INJ (07:00)
[2018-01-02] MEDS ORDERED: NORepinephrine 8MG/250 ML BAG (07:00)
[2018-01-02 07:06] LABS: ANION GAP 8 (5-13); BLOOD UREA NITROGEN 38 mg/dl (7-20); CARBON DIOXIDE 33 mmol/L (21-31); CHLORIDE 84 mmol/L (97-110); CREATININE 1.13 mg/dl (0.61-1.24); Estimated GFR > 60 mL/min (>60); GLUCOSE 109 mg/dl (70-220); SODIUM 125 mmol/L (135-144)
[2018-01-02 07:16] LABS: POTASSIUM 5.7 mmol/L (3.5-5.1)
[2018-01-02] MEDS: NA POLYST SULFON 15 GM/60 ML BTL PO (07:30)
[2018-01-02] MEDS: LORAZEPAM 2 MG INJ IV (08:11)
[2018-01-02] MEDS: SODIUM CHLORIDE 1 GM TAB PO ×3 (09:00→21:18)
[2018-01-02] MEDS: NYSTATIN SUSP 5 ML CUP PO ×5 (09:00→21:18)
[2018-01-02] MEDS ORDERED: ONDANSETRON 4 MG INJ IV (10:00)
[2018-01-02] MEDS ORDERED: TRIMETHOBENZAMIDE 100 MG/ML VIAL IM (10:00)
[2018-01-02 10:46] LABS: AADO2 Arterial 193.7 mmHg (7.0-24.0); Allen Test ACCEPTAB; Arterial Base Excess -6.8 mmol/L (-3.0-3); Arterial Blood Gas Oxygen Sat 54.4 mmHG (95.0-98.0); Arterial COHb 0.9 % (0.0-3.0); Arterial Fraction of Oxyhgb 53.6 % (93.0-99.0); Arterial HCO3 20.6 mmol/L (22.0-26.0); Arterial MetHb 0.6 % (0.0-1.5); Arterial Total Hemglobin 7.9 g/dl (12.0-18.0); Blood Gas IEPAP 15/5; MODE MASK - BIPAP; Site Right Radial
[2018-01-02] MEDS ORDERED: PROPOFOL 100 ML (11:30)
[2018-01-02] MEDS: PROPOFOL 100 ML IV ×2 (11:48→20:22)
[2018-01-02] MEDS: NORepinephrine 8MG/250 ML (PMX 250 ML IV ×2 (12:08→18:01)
[2018-01-02] MEDS: DEXTROSE 50% 50 ML SYRINGE IV ×2 (12:41→13:03)
[2018-01-02] MEDS: FUROSEMIDE 40 MG INJ IV (13:45)
[2018-01-02 13:58] LABS: MODE VENT - AC
[2018-01-02 16:50] LABS: ADD MAN DIFF? NO
[2018-01-02 16:52] LABS: WHITE BLOOD COUNT 9.2 10^3/ul (4.8-10.8)
[2018-01-02 16:52] LABS: ABNORMAL IP MESSAGE 1; HEMATOCRIT 30.9 % (42.0-52.0); HEMOGLOBIN 10.8 g/dl (14.0-18.0); LYMPHOCYTES # 0.2 10^3/ul (0.8-2.9); LYMPHOCYTES % 1.8 % (15.0-51.0); MEAN CORPUSCULAR HEMOGLOBIN 36.6 pg (29.0-33.0); MEAN CORPUSCULAR VOLUME 104.7 fl (82.0-101.0); MEAN PLATELET VOLUME 11.2 fl (7.4-10.4); MONOCYTE # 0.2 10^3/ul (0.3-0.9); MONOCYTES % 2.2 % (0.0-11.0); NEUTROPHIL # 8.7 10^3/ul (1.6-7.5); NEUTROPHILS % 94.7 % (39.0-77.0); NUCLEATED RED BLOOD CELLS% 0.2 /100WBC (0.0-0.0); PLATELET COUNT 44 10^3/UL (140-415); POSITIVE DIFF @See below; RED BLOOD COUNT 2.95 10^6/ul (4.70-6.10); RED CELL DISTRIBUTION WIDTH 12.2 % (11.5-14.5)
[2018-01-02] MEDS: PRIMAQUINE 15 MG TAB PO (17:10)
[2018-01-02] MEDS: DOLUTEGRAVIR SODIUM 50 MG TABLET PO (17:10)
[2018-01-02] MEDS: ABACAVIR/LAMIVUDINE TAB PO (17:10)
[2018-01-02 17:17] LABS: ANION GAP 6 (5-13); BLOOD UREA NITROGEN 36 mg/dl (7-20); CALCIUM 8.8 mg/dl (8.4-10.2); CARBON DIOXIDE 35 mmol/L (21-31); CHLORIDE 85 mmol/L (97-110); CREATININE 1.09 mg/dl (0.61-1.24); Estimated GFR > 60 mL/min (>60); GLUCOSE 214 mg/dl (70-220); POTASSIUM 4.7 mmol/L (3.5-5.1); SODIUM 126 mmol/L (135-144)
[2018-01-02] MEDS: LEVOFLOXACIN 500MG/D5W (PMX) 100 ML IVPB (17:26)
[2018-01-02] MEDS: FAMOTIDINE 20 MG INJ IV (17:26)
[2018-01-02] MEDS: FLUCONAZOLE 100 MG TAB PO (17:51)
[2018-01-02] MEDS: SOD CHLORIDE 0.9% 1,000 ML IV (17:53)
[2018-01-02] MEDS: AZITHROMYCIN 600 MG TAB PO (18:18)
[2018-01-02] MEDS: CLINDAMYCIN 900 MG/D5W (PMX) 50 ML IVPB ×2 (18:18→21:18)
[2018-01-03] MEDS: INSULIN ASPART [NOVOLOG] 3 ML PEN SC ×4 (00:09→17:38)
[2018-01-03] MEDS: ACCU-CHEK XX ×5 (00:10→17:38)
[2018-01-03] MEDS: ALBUTEROL/IPRATROPIUM (NEB) 3 ML AMP HHN ×3 (01:45→09:00)
[2018-01-03 05:07] LABS: AADO2 Arterial 126.3 mmHg (7.0-24.0); Arterial Base Excess 8.5 mmol/L (-3.0-3); Arterial Blood Gas Oxygen Sat 96.7 mmHG (95.0-98.0); Arterial COHb 0.2 % (0.0-3.0); Arterial Fraction of Oxyhgb 96.2 % (93.0-99.0); Arterial HCO3 33.7 mmol/L (22.0-26.0); Arterial MetHb 0.3 % (0.0-1.5); Arterial Total Hemglobin 11.5 g/dl (12.0-18.0); Site Right Brachial
[2018-01-03] MEDS: CLINDAMYCIN 900 MG/D5W (PMX) 50 ML IVPB ×3 (05:10→22:06)
[2018-01-03] MEDS: METHYLPREDNISOLONE 40 MG INJ IV ×3 (05:10→22:06)
[2018-01-03] MEDS: SOD CHLORIDE 0.9% 1,000 ML IV ×3 (05:45→20:10)
[2018-01-03 05:47] LABS: WHITE BLOOD COUNT 6.7 10^3/ul (4.8-10.8)
[2018-01-03 05:47] LABS: ABNORMAL IP MESSAGE 1; HEMATOCRIT 30.2 % (42.0-52.0); HEMOGLOBIN 10.6 g/dl (14.0-18.0); MEAN CORPUSCULAR HEMOGLOBIN 36.3 pg (29.0-33.0); MEAN CORPUSCULAR HGB CONC 35.1 g/dl (32.0-37.0); MEAN CORPUSCULAR VOLUME 103.4 fl (82.0-101.0); MEAN PLATELET VOLUME 11.9 fl (7.4-10.4); NUCLEATED RED BLOOD CELLS% 0.3 /100WBC (0.0-0.0); POSITIVE DIFF @See below; RED BLOOD COUNT 2.92 10^6/ul (4.70-6.10); RED CELL DISTRIBUTION WIDTH 11.9 % (11.5-14.5)
[2018-01-03 05:56] LABS: PLATELET COUNT 30 10^3/UL (140-415)
[2018-01-03 05:57] LABS: ADD MAN DIFF? YES
[2018-01-03 06:09] LABS: PHOSPHORUS 2.5 mg/dl (2.5-4.9)
[2018-01-03 06:09] LABS: MAGNESIUM 1.8 mg/dl (1.7-2.5)
[2018-01-03 06:11] LABS: ANION GAP 6 (5-13); BLOOD UREA NITROGEN 32 mg/dl (7-20); CALCIUM 8.8 mg/dl (8.4-10.2); CARBON DIOXIDE 37 mmol/L (21-31); CHLORIDE 88 mmol/L (97-110); CREATININE 0.99 mg/dl (0.61-1.24); Estimated GFR > 60 mL/min (>60); GLUCOSE 93 mg/dl (70-220); POTASSIUM 4.8 mmol/L (3.5-5.1); SODIUM 131 mmol/L (135-144)
[2018-01-03 06:18] LABS: LACTIC ACID 2.3 mmol/L (0.5-2.0)
[2018-01-03 07:38] LABS: ANISOCYTOSIS 3+ (0-0); GIANT THROMBO% (M) 3 % (0-0); LYMPHOCYTES #M 0.1 10^3/ul (0.8-2.9); LYMPHOCYTES % (M) 2 % (15-51); MONOCYTE #M 0.2 10^3/ul (0.3-0.9); MONOCYTES % (M) 3 % (0-11); PLATELET ESTIMATE SIG DECREASED; PLATELET MORPHOLOGY COMMENT @See below; POIKILOCYTOSIS 1+ (0-0); SEGMENTED NEUTROPHILS (M) % 95 % (39-77); SMUDGE%M 6 % (0-0); TARGET CELLS 1+ (0-0)
[2018-01-03] MEDS: PROPOFOL 100 ML IV (08:28)
[2018-01-03] MEDS: FAMOTIDINE 20 MG INJ IV (08:29)
[2018-01-03] MEDS: NYSTATIN SUSP 5 ML CUP PO ×4 (08:29→20:48)
[2018-01-03] MEDS: SODIUM CHLORIDE 1 GM TAB PO ×3 (08:29→20:48)
[2018-01-03] MEDS: PRIMAQUINE 15 MG TAB PO (08:29)
[2018-01-03] MEDS: DOLUTEGRAVIR SODIUM 50 MG TABLET PO (08:30)
[2018-01-03] MEDS: FLUCONAZOLE 100 MG TAB PO (08:30)
[2018-01-03] MEDS: ABACAVIR/LAMIVUDINE TAB PO (08:30)
[2018-01-03] MEDS: NORepinephrine 8MG/250 ML (PMX 250 ML IV (08:42)
[2018-01-03 09:19] LABS: ALANINE AMINOTRANSFERASE 58 IU/L (13-69); ALBUMIN 2.9 g/dl (3.3-4.9); ALBUMIN/GLOBULIN RATIO 1.45; ALKALINE PHOSPHATASE 37 IU/L (42-121); ANION GAP 4 (5-13); ASPARTATE AMINO TRANSFERASE 74 IU/L (15-46); BILIRUBIN,INDIRECT 0.2 mg/dl (0-1.1); BILIRUBIN,TOTAL 0.2 mg/dl (0.2-1.3); BLOOD UREA NITROGEN 33 mg/dl (7-20); CALCIUM 8.7 mg/dl (8.4-10.2); CARBON DIOXIDE 38 mmol/L (21-31); CHLORIDE 87 mmol/L (97-110); CREATININE 0.87 mg/dl (0.61-1.24); Estimated GFR > 60 mL/min (>60); GLUCOSE 126 mg/dl (70-220); POTASSIUM 4.7 mmol/L (3.5-5.1); SODIUM 129 mmol/L (135-144); TOTAL PROTEIN 4.9 g/dl (6.1-8.1)
[2018-01-03 12:56] LABS: CREATININE, RANDOM URINE 78 mg/dL (20-320); MICROALBUMIN 3.3 mg/dL; MICROALBUMIN/CREATININE RATIO 42 (<30)
[2018-01-03] MEDS: ALBUTEROL HFA 8 GM INHALER INH ×3 (13:00→21:00)
[2018-01-03] MEDS: ACYCLOVIR 400 MG TAB PO (13:45)
[2018-01-03] MEDS: IPRATROPIUM (HFA) 12.9 GM INHALER INH ×2 (14:00→21:00)
[2018-01-03 14:29] LABS: AADO2 Arterial 287.2 mmHg (7.0-24.0); Allen Test ACCEPTAB; Arterial Base Excess 5.1 mmol/L (-3.0-3); Arterial Blood Gas Oxygen Sat 98.5 mmHG (95.0-98.0); Arterial COHb 0.3 % (0.0-3.0); Arterial Fraction of Oxyhgb 98.2 % (93.0-99.0); Arterial HCO3 32.9 mmol/L (22.0-26.0); Arterial MetHb 0 % (0.0-1.5); Arterial Total Hemglobin 11.1 g/dl (12.0-18.0); Arterial pCO2 66.9 mmhg (35-45); MODE VENT - AC; Site Right Radial
[2018-01-03] MEDS: LEVOFLOXACIN 500MG/D5W (PMX) 100 ML IVPB (15:43)
[2018-01-03] MEDS: BALSAM PERU/CASTOR OIL 60 GM TUBE TOP (20:48)
[2018-01-03 20:50] LABS: RAPID PLASMA REAGIN NONREACTIVE (NR)
[2018-01-03] MEDS: morphine 2 MG INJ IV (21:08)
[2018-01-04] MEDS: ACCU-CHEK XX ×6 (00:11→21:45)
[2018-01-04] MEDS: IPRATROPIUM (HFA) 12.9 GM INHALER INH ×3 (01:08→16:27)
[2018-01-04] MEDS: PROPOFOL 100 ML IV ×3 (02:23→21:45)
[2018-01-04 05:15] LABS: ADD MAN DIFF? NO
[2018-01-04 05:19] LABS: WHITE BLOOD COUNT 5.7 10^3/ul (4.8-10.8)
[2018-01-04 05:19] LABS: ABNORMAL IP MESSAGE 1; HEMATOCRIT 28.2 % (42.0-52.0); HEMOGLOBIN 9.8 g/dl (14.0-18.0); LYMPHOCYTES # 0.4 10^3/ul (0.8-2.9); LYMPHOCYTES % 6.2 % (15.0-51.0); MEAN CORPUSCULAR HEMOGLOBIN 36.3 pg (29.0-33.0); MEAN CORPUSCULAR HGB CONC 34.8 g/dl (32.0-37.0); MEAN CORPUSCULAR VOLUME 104.4 fl (82.0-101.0); MEAN PLATELET VOLUME 12.4 fl (7.4-10.4); MONOCYTE # 0.1 10^3/ul (0.3-0.9); MONOCYTES % 2.5 % (0.0-11.0); NEUTROPHIL # 5.1 10^3/ul (1.6-7.5); NEUTROPHILS % 89.9 % (39.0-77.0); NUCLEATED RED BLOOD CELLS% 0.4 /100WBC (0.0-0.0); PLATELET COUNT 31 10^3/UL (140-415); POSITIVE DIFF @See below; RED CELL DISTRIBUTION WIDTH 12.7 % (11.5-14.5)
[2018-01-04 05:53] LABS: ANION GAP 3 (5-13); BLOOD UREA NITROGEN 30 mg/dl (7-20); CALCIUM 8.6 mg/dl (8.4-10.2); CARBON DIOXIDE 34 mmol/L (21-31); CHLORIDE 93 mmol/L (97-110); CREATININE 0.72 mg/dl (0.61-1.24); Estimated GFR > 60 mL/min (>60); GLUCOSE 118 mg/dl (70-220); POTASSIUM 4.5 mmol/L (3.5-5.1); SODIUM 130 mmol/L (135-144)
[2018-01-04] MEDS: INSULIN ASPART [NOVOLOG] 3 ML PEN SC ×4 (06:00→17:32)
[2018-01-04] MEDS: CLINDAMYCIN 900 MG/D5W (PMX) 50 ML IVPB ×3 (06:02→21:59)
[2018-01-04] MEDS: METHYLPREDNISOLONE 40 MG INJ IV ×3 (06:02→21:59)
[2018-01-04] MEDS: PRIMAQUINE 15 MG TAB PO (08:17)
[2018-01-04] MEDS: SODIUM CHLORIDE 1 GM TAB PO ×3 (08:17→21:19)
[2018-01-04] MEDS: ACYCLOVIR 400 MG TAB PO (08:17)
[2018-01-04] MEDS: ABACAVIR/LAMIVUDINE TAB PO (08:17)
[2018-01-04] MEDS: DOLUTEGRAVIR SODIUM 50 MG TABLET PO (08:17)
[2018-01-04] MEDS: NYSTATIN SUSP 5 ML CUP PO ×4 (08:18→21:19)
[2018-01-04] MEDS: FLUCONAZOLE 100 MG TAB PO (08:18)
[2018-01-04] MEDS: BALSAM PERU/CASTOR OIL 60 GM TUBE TOP ×2 (08:18→21:19)
[2018-01-04] MEDS: FAMOTIDINE 20 MG INJ IV (08:26)
[2018-01-04] MEDS: SOD CHLORIDE 0.9% 1,000 ML IV (08:30)
[2018-01-04] MEDS ORDERED: NORepinephrine 16 MG in SOD CHLORIDE 0.9% 484 ML IV (08:30)
[2018-01-04] MEDS: ALBUTEROL HFA 8 GM INHALER INH ×2 (08:35→16:26)
[2018-01-04 08:40] LABS: AADO2 Arterial 75.6 mmHg (7.0-24.0); Allen Test ACCEPTAB; Arterial Base Excess 6.8 mmol/L (-3.0-3); Arterial Blood Gas Oxygen Sat 95.8 mmHG (95.0-98.0); Arterial COHb 0.4 % (0.0-3.0); Arterial Fraction of Oxyhgb 95.1 % (93.0-99.0); Arterial HCO3 30.9 mmol/L (22.0-26.0); Arterial MetHb 0.3 % (0.0-1.5); Arterial Total Hemglobin 11.2 g/dl (12.0-18.0); Arterial pCO2 42.3 mmhg (35-45); MODE VENT - AC; Site Right Radial
[2018-01-04 09:43] LABS: AADO2 Arterial 110.8 mmHg (7.0-24.0); Allen Test ACCEPTAB; Arterial Base Excess 6.5 mmol/L (-3.0-3); Arterial Blood Gas Oxygen Sat 89.2 mmHG (95.0-98.0); Arterial COHb 0.9 % (0.0-3.0); Arterial Fraction of Oxyhgb 88.1 % (93.0-99.0); Arterial HCO3 30.5 mmol/L (22.0-26.0); Arterial MetHb 0.3 % (0.0-1.5); Arterial Total Hemglobin 11.7 g/dl (12.0-18.0); Arterial pCO2 41.5 mmhg (35-45); Blood Gas PS 10; MODE VENT - CPAP; Site Right Radial
[2018-01-04 10:46] LABS: CYTOMEGALOVIRUS ANTIBODY (IGM) <30.00 AU/mL
[2018-01-04] MEDS: DEXTROSE 50% 50 ML SYRINGE IV ×2 (12:15→20:24)
[2018-01-04] MEDS: LEVOFLOXACIN 500MG/D5W (PMX) 100 ML IVPB (15:23)
[2018-01-04] MEDS: morphine 2 MG INJ IV (16:20)
[2018-01-04 18:21] LABS: TOXOPLASMA ANTIBODY <7.20 IU/mL
[2018-01-04] MEDS: METOCLOPRAMIDE 10 MG INJ IV (18:50)
[2018-01-04] MEDS ORDERED: ONDANSETRON 4 MG INJ (19:09)
[2018-01-04] MEDS: ONDANSETRON INJ 8 MG in SOD CHLORIDE 0.9% 50 ML IV (19:11)
[2018-01-04] MEDS: DEXTROSE 5%-0.45% NACL 1,000 ML IV (20:00)
[2018-01-04 20:07] LABS: BACT AG SOURCE SERUM; BACT AG STREP GP B NOT DETECTED; BACT AG STREP PNEUMONIAE NOT DETECTED
[2018-01-04] MEDS: ALBUTEROL/IPRATROPIUM (NEB) 3 ML AMP HHN (20:50)
[2018-01-04] MEDS ORDERED: ALBUTEROL/IPRATROPIUM (NEB) 3 ML AMP HHN (21:00)
[2018-01-04] MEDS: ZOLPIDEM 5 MG TAB PO (21:19)
[2018-01-04] MEDS: ONDANSETRON 4 MG INJ IV (22:21)
[2018-01-04] MEDS ORDERED: ALBUMIN HUMAN 25% 100 ML IV (22:30)
[2018-01-04] MEDS: LORAZEPAM 2 MG INJ IV (22:31)
[2018-01-04] MEDS: ALBUMIN HUMAN 25% 100 ML IV (23:26)
[2018-01-05] MEDS: ALBUMIN HUMAN 25% 100 ML IV (00:18)
[2018-01-05] MEDS: INSULIN ASPART [NOVOLOG] 3 ML PEN SC ×4 (01:02→17:47)
[2018-01-05] MEDS: ACCU-CHEK XX ×6 (01:03→20:35)
[2018-01-05 01:22] LABS: ANION GAP 7 (5-13); BLOOD UREA NITROGEN 35 mg/dl (7-20); CALCIUM 9.4 mg/dl (8.4-10.2); CARBON DIOXIDE 35 mmol/L (21-31); CHLORIDE 91 mmol/L (97-110); CREATININE 0.76 mg/dl (0.61-1.24); Estimated GFR > 60 mL/min (>60); GLUCOSE 136 mg/dl (70-220); POTASSIUM 4.2 mmol/L (3.5-5.1); SODIUM 133 mmol/L (135-144)
[2018-01-05] MEDS: ALBUTEROL/IPRATROPIUM (NEB) 3 ML AMP HHN ×6 (01:37→18:22)
[2018-01-05] MEDS: LORAZEPAM 2 MG INJ IV ×2 (02:35→21:33)
[2018-01-05] MEDS: ONDANSETRON 4 MG INJ IV ×2 (04:07→09:09)
[2018-01-05] MEDS: morphine 2 MG INJ IV ×3 (04:07→17:56)
[2018-01-05 05:05] LABS: ADD MAN DIFF? NO
[2018-01-05 05:12] LABS: WHITE BLOOD COUNT 6.6 10^3/ul (4.8-10.8)
[2018-01-05 05:12] LABS: ABNORMAL IP MESSAGE 1; HEMATOCRIT 26.5 % (42.0-52.0); HEMOGLOBIN 9.2 g/dl (14.0-18.0); LYMPHOCYTES # 0.2 10^3/ul (0.8-2.9); LYMPHOCYTES % 2.7 % (15.0-51.0); MEAN CORPUSCULAR HEMOGLOBIN 36.1 pg (29.0-33.0); MEAN CORPUSCULAR HGB CONC 34.7 g/dl (32.0-37.0); MEAN CORPUSCULAR VOLUME 103.9 fl (82.0-101.0); MEAN PLATELET VOLUME 10.9 fl (7.4-10.4); MONOCYTE # 0.2 10^3/ul (0.3-0.9); NEUTROPHIL # 6.2 10^3/ul (1.6-7.5); NEUTROPHILS % 93.2 % (39.0-77.0); POSITIVE DIFF @See below; RED BLOOD COUNT 2.55 10^6/ul (4.70-6.10); RED CELL DISTRIBUTION WIDTH 12.8 % (11.5-14.5)
[2018-01-05 05:54] LABS: PLATELET COUNT 27 10^3/UL (140-415)
[2018-01-05] MEDS: CLINDAMYCIN 900 MG/D5W (PMX) 50 ML IVPB (06:07)
[2018-01-05] MEDS: METHYLPREDNISOLONE 40 MG INJ IV ×3 (06:07→21:33)
[2018-01-05] MEDS: SODIUM CHLORIDE 1 GM TAB PO ×3 (08:51→20:34)
[2018-01-05] MEDS: FAMOTIDINE 20 MG INJ IV (08:51)
[2018-01-05] MEDS: NYSTATIN SUSP 5 ML CUP PO ×4 (08:51→20:34)
[2018-01-05] MEDS: DEXTROSE 5%-0.9% NACL 1,000 ML IV (08:51)
[2018-01-05] MEDS: DOLUTEGRAVIR SODIUM 50 MG TABLET PO (08:51)
[2018-01-05] MEDS: ACYCLOVIR 400 MG TAB PO (08:52)
[2018-01-05] MEDS: BALSAM PERU/CASTOR OIL 60 GM TUBE TOP ×2 (08:52→20:35)
[2018-01-05] MEDS: ABACAVIR/LAMIVUDINE TAB PO (08:52)
[2018-01-05] MEDS: FLUCONAZOLE 100 MG TAB PO (08:52)
[2018-01-05] MEDS: PRIMAQUINE 15 MG TAB PO (08:52)
[2018-01-05] MEDS ORDERED: BISACODYL 10 MG SUPP PR (09:00)
[2018-01-05] MEDS: SENNA TAB PO ×3 (09:02→20:38)
[2018-01-05 10:07] LABS: ANION GAP 8 (5-13); BLOOD UREA NITROGEN 33 mg/dl (7-20); CARBON DIOXIDE 35 mmol/L (21-31); CHLORIDE 93 mmol/L (97-110); Estimated GFR > 60 mL/min (>60); GLUCOSE 138 mg/dl (70-220); POTASSIUM 4.3 mmol/L (3.5-5.1); SODIUM 136 mmol/L (135-144)
[2018-01-05] MEDS: HYDROCODONE/APAP (5/325) TAB PO ×2 (13:43→19:41)
[2018-01-05] MEDS: LEVOFLOXACIN 500MG/D5W (PMX) 100 ML IVPB (16:52)
[2018-01-05] MEDS: FLUCONAZOLE 200 MG TAB PO (20:34)
[2018-01-06] MEDS: ALBUTEROL/IPRATROPIUM (NEB) 3 ML AMP HHN ×6 (01:39→21:58)
[2018-01-06] MEDS: HYDROCODONE/APAP (5/325) TAB PO ×2 (05:52→13:52)
[2018-01-06] MEDS: METHYLPREDNISOLONE 40 MG INJ IV ×3 (05:52→21:21)
[2018-01-06] MEDS: ACCU-CHEK XX ×4 (07:00→20:27)
[2018-01-06] MEDS: INSULIN ASPART [NOVOLOG] 3 ML PEN SC ×4 (07:00→20:27)
[2018-01-06 07:09] LABS: ANION GAP 11 (5-13); BLOOD UREA NITROGEN 31 mg/dl (7-20); CALCIUM 9.1 mg/dl (8.4-10.2); CARBON DIOXIDE 29 mmol/L (21-31); CHLORIDE 95 mmol/L (97-110); Estimated GFR > 60 mL/min (>60); GLUCOSE 110 mg/dl (70-220); MAGNESIUM 1.8 mg/dl (1.7-2.5); PHOSPHORUS 3.2 mg/dl (2.5-4.9); POTASSIUM 4.5 mmol/L (3.5-5.1); SODIUM 135 mmol/L (135-144)
[2018-01-06] MEDS: morphine 2 MG INJ IV ×2 (08:06→20:13)
[2018-01-06] MEDS: BISACODYL 10 MG SUPP PR (09:00)
[2018-01-06] MEDS: MAGNESIUM SULFATE 2 GM/50 ML 50 ML IVPB (10:06)
[2018-01-06] MEDS: SODIUM CHLORIDE 1 GM TAB PO ×3 (10:10→20:14)
[2018-01-06] MEDS: ABACAVIR/LAMIVUDINE TAB PO (10:10)
[2018-01-06] MEDS: SENNA TAB PO ×2 (10:11→20:14)
[2018-01-06] MEDS: ACYCLOVIR 400 MG TAB PO (10:11)
[2018-01-06] MEDS: FLUCONAZOLE 200 MG TAB PO ×2 (10:11→20:13)
[2018-01-06] MEDS: DOLUTEGRAVIR SODIUM 50 MG TABLET PO (10:11)
[2018-01-06] MEDS: NYSTATIN SUSP 5 ML CUP PO ×4 (10:11→20:14)
[2018-01-06] MEDS: FAMOTIDINE 20 MG INJ IV (10:12)
[2018-01-06] MEDS: BALSAM PERU/CASTOR OIL 60 GM TUBE TOP ×3 (10:31→21:31)
[2018-01-06] MEDS: DAPSONE 100 MG TAB PO (13:52)
[2018-01-06] MEDS: ONDANSETRON 4 MG INJ IV (18:32)
[2018-01-06] MEDS: LORAZEPAM 2 MG INJ IV (21:23)
[2018-01-07] MEDS: morphine 2 MG INJ IV ×4 (00:40→18:24)
[2018-01-07] MEDS: ALBUTEROL/IPRATROPIUM (NEB) 3 ML AMP HHN ×6 (01:15→21:00)
[2018-01-07] MEDS: HYDROCODONE/APAP (5/325) TAB PO ×4 (01:38→20:35)
[2018-01-07] MEDS: METHYLPREDNISOLONE 40 MG INJ IV (05:01)
[2018-01-07] MEDS: INSULIN ASPART [NOVOLOG] 3 ML PEN SC ×4 (07:00→20:38)
[2018-01-07] MEDS: ACCU-CHEK XX ×4 (08:21→20:38)
[2018-01-07] MEDS: FAMOTIDINE 20 MG INJ IV (08:22)
[2018-01-07] MEDS: DAPSONE 100 MG TAB PO (08:23)
[2018-01-07] MEDS: SENNA TAB PO ×2 (08:23→20:37)
[2018-01-07] MEDS: DOLUTEGRAVIR SODIUM 50 MG TABLET PO (08:23)
[2018-01-07] MEDS: SODIUM CHLORIDE 1 GM TAB PO ×3 (08:23→20:35)
[2018-01-07] MEDS: ACYCLOVIR 400 MG TAB PO (08:23)
[2018-01-07] MEDS: ABACAVIR/LAMIVUDINE TAB PO (08:23)
[2018-01-07] MEDS: NYSTATIN SUSP 5 ML CUP PO ×4 (08:23→20:37)
[2018-01-07] MEDS: FLUCONAZOLE 200 MG TAB PO ×2 (08:24→20:35)
[2018-01-07] MEDS: BALSAM PERU/CASTOR OIL 60 GM TUBE TOP ×3 (08:25→20:38)
[2018-01-07] MEDS: ZOLPIDEM 5 MG TAB PO (20:35)
[2018-01-08] MEDS: ALBUTEROL/IPRATROPIUM (NEB) 3 ML AMP HHN ×4 (01:00→13:00)
[2018-01-08] MEDS: morphine 2 MG INJ IV ×2 (02:58→09:50)
[2018-01-08] MEDS: HYDROCODONE/APAP (5/325) TAB PO ×2 (06:18→13:32)
[2018-01-08] MEDS: INSULIN ASPART [NOVOLOG] 3 ML PEN SC ×2 (07:00→11:30)
[2018-01-08] MEDS: ACCU-CHEK XX ×2 (07:00→11:30)
[2018-01-08] MEDS: DEXTROSE 50% 50 ML SYRINGE IV (08:29)
[2018-01-08] MEDS: GLUCOSE GEL 15 GRAM TUBE BUCCAL (08:49)
[2018-01-08] MEDS: NYSTATIN SUSP 5 ML CUP PO ×2 (09:00→13:00)
[2018-01-08] MEDS: ABACAVIR/LAMIVUDINE TAB PO (09:47)
[2018-01-08] MEDS: ACYCLOVIR 400 MG TAB PO (09:47)
[2018-01-08] MEDS: DOLUTEGRAVIR SODIUM 50 MG TABLET PO (09:47)
[2018-01-08] MEDS: SODIUM CHLORIDE 1 GM TAB PO ×2 (09:48→13:00)
[2018-01-08] MEDS: DAPSONE 100 MG TAB PO (09:48)
[2018-01-08] MEDS: FLUCONAZOLE 200 MG TAB PO (09:48)
[2018-01-08] MEDS: SENNA TAB PO (09:48)
[2018-01-08] MEDS: FAMOTIDINE 20 MG INJ IV (09:50)
[2018-01-08] MEDS: BALSAM PERU/CASTOR OIL 60 GM TUBE TOP (09:52)
== END 2018-01-08 16:45 | disposition hospice, home (50) | DRG 969 ==
LOC: ICU 01-01 21:47 → 2NE 01-05 13:10 → E/R 13:12 → 6WM 14:42
PROVIDERS: Hospitalist
PROC: 5A09357 Assistance with Respiratory Ventilation, Less than 24 Consecutive Hours, Continuous Positive Airway Pressure (ICD-10-PCS; 2017-12-27)
PROC: 5A1945Z Respiratory Ventilation, 24-96 Consecutive Hours (ICD-10-PCS; principal; 2018-01-02)
PROC: 0BW Respiratory System, Revision (ICD-10-PCS; 2018-01-02)
PROC: 0BH17EZ Insertion of Endotracheal Airway into Trachea, Via Natural or Artificial Opening (ICD-10-PCS; 2018-01-02)
PROC: 06HM33Z Insertion of Infusion Device into Right Femoral Vein, Percutaneous Approach (ICD-10-PCS; 2018-01-02)
PROC: 0BP1XDZ Removal of Intraluminal Device from Trachea, External Approach (ICD-10-PCS; 2018-01-04)
DX: B20 Human immunodeficiency virus [HIV] disease (principal); A41.9 Sepsis, unspecified organism; B59 Pneumocystosis; E43 Unspecified severe protein-calorie malnutrition; J96.21 Acute and chronic respiratory failure with hypoxia; J96.22 Acute and chronic respiratory failure with hypercapnia; R65.21 Severe sepsis with septic shock; B37.0 Candidal stomatitis; E87.2 Acidosis; E22.2 Syndrome of inappropriate secretion of antidiuretic hormone; J44.1 Chronic obstructive pulmonary disease with (acute) exacerbation; K56.7 Ileus, unspecified; N17.9 Acute kidney failure, unspecified; R18.8 Other ascites; R64 Cachexia; T85.628A Displacement of other specified internal prosthetic devices, implants and grafts, initial encounter; Z68.1 Body mass index [BMI] 19.9 or less, adult; D64.9 Anemia, unspecified; D69.6 Thrombocytopenia, unspecified; E87.5 Hyperkalemia; E16.2 Hypoglycemia, unspecified; I12.9 Hypertensive chronic kidney disease with stage 1 through stage 4 chronic kidney disease, or unspecified chronic kidney disease; M62.50 Muscle wasting and atrophy, not elsewhere classified, unspecified site; N18.9 Chronic kidney disease, unspecified; Z91.14 Patient's other noncompliance with medication regimen; Z90.5 Acquired absence of kidney; Z87.01 Personal history of pneumonia (recurrent); Z87.891 Personal history of nicotine dependence
CPT/HCPCS: 31500; 36415; 36600; 71045; 74018; 76700; 80048; 80053; 80061; 80307; 81001; 81003; 82043; 82607; 82746; 82803; 82962; 83036; 83605; 83615; 83735; 83880; 83930; 83935; 84100; 84155; 84300; 84439; 84443; 84484; 84560; 85025; 85610; 85730; 86360; 86403; 86592; 86635; 86644; 86777; 87040; 87070; 87077; 87081; 87449; 90686; 93005; 93971; 94003; 94640; 94660; 94664; 94760; 94770; 97110; 97161; 97164; 97530; 99291-25